=== PATIENT | male | born 1960 | race Caucasian/White ===

== ENCOUNTER → 2016-12-28 | Outpatient (CLI) | payer OTHER ==
[~2016-12-28] MED LIST: CRFUDL PO; DORZ1SOL6 OPB; LATA0.009 OPB; MULT-506 PO; NAPR-1169 PO; PRT40 PO
--- NOTE | 2016-12-28 18:46 | DIAGNOSTIC IMAGING REPORT ---
LEFT LOWER EXTREMITY VENOUS DOPPLER CLINICAL HISTORY: Left leg pain. COMPARISON STUDY: Left lower extremity venous Doppler December 02, 2015. TECHNIQUE: Sonography of the deep venous system of the left lower extremity was performed. Compression and augmentation were evaluated. FINDINGS: The left common femoral, superficial femoral and popliteal veins were compressible. Augmentation was normal. Flow was shown within the deep calf vessels. IMPRESSION: No evidence of deep venous thrombus within the left lower extremity. Electronically signed by: Sushant Kaba M.D. 12/28/2016 6:45 PM Dictated Date/Time: 12/28/2016 6:44 PM
--- NOTE | 2016-12-28 18:52 | DIAGNOSTIC IMAGING REPORT ---
RENAL ULTRASOUND CLINICAL HISTORY: Right groin pain. History of stones. Costovertebral angle tenderness. COMPARISON STUDY: CT of the abdomen September 16, 2016 and renal ultrasound February 25, 2016. TECHNIQUE: Sonography of the kidneys and the urinary bladder was performed. FINDINGS: There is no hydronephrosis. The right kidney measures 11.4 cm in maximal dimension and the left measures 12.9 cm. A 1.9 cm cyst within the upper pole of the right kidney is noted. This has minimal peripheral calcification. There is also a suspected 1.3 cm left renal cyst. There are bilateral renal calculi. Both ureteral jets were identified. A few echogenic right hepatic lobe lesions are unchanged and likely reflect hemangiomas when correlating with prior CTs. IMPRESSION: 1. No hydronephrosis. 2. Bilateral nephrolithiasis. 3. Probable bilateral renal cysts and right hepatic lobe hemangiomas. Electronically signed by: Sushant Kaba M.D. 12/28/2016 6:51 PM Dictated Date/Time: 12/28/2016 6:46 PM
--- NOTE | 2016-12-28 18:54 | DIAGNOSTIC IMAGING REPORT ---
SCROTAL ULTRASOUND CLINICAL HISTORY: Right groin pain. COMPARISON STUDY: Scrotal ultrasound October 29, 2014. TECHNIQUE: Grayscale and color and duplex Doppler sonography of the scrotum was performed. FINDINGS: The right testis measures 4.8 x 2.7 x 2.2 cm and the left measures 4.4 x 2.8 x 2.2 cm. Color flow within each testis is symmetric and no testicular mass is present. Small epididymal head cysts are noted. There is no evidence of epididymitis. There are small bilateral varicoceles. There is a small left-sided hydrocele. IMPRESSION: 1. Normal sonographic appearance of the testes. 2. No evidence of epididymitis. 3. Small bilateral varicoceles and a small left hydrocele. Electronically signed by: Sushant Kaba M.D. 12/28/2016 6:52 PM Dictated Date/Time: 12/28/2016 6:51 PM
--- NOTE | 2016-12-28 19:10 | DIAGNOSTIC IMAGING REPORT ---
CHEST 2 VIEWS ROUTINE CLINICAL HISTORY: Cough. Chest pain. COMPARISON STUDY: Chest CT September 16, 2016. FINDINGS: Lung volumes are normal. No pneumothorax or pleural effusion is present. There is no evidence of pulmonary edema. No consolidation is identified. Cardiomediastinal silhouette is normal. IMPRESSION: No acute cardiopulmonary findings. Electronically signed by: Sushant Kaba M.D. 12/28/2016 7:09 PM Dictated Date/Time: 12/28/2016 7:07 PM
[2016-12-28 19:16] LABS: BASO % 0.2 %; BASO ABS # 0.01 K/uL (0-0.2); COMPLETE YES; EOS % 0.9 %; HEMATOCRIT 45.1 % (42-52); IG% 0.2 %; LYMPH % 25.3 %; MEAN CELL VOLUME 92.8 fL (80-100); MEAN CORPUSCULAR HEMOGLOBIN 33.7 pg (25-34); MEAN CORPUSCULAR HGB CONC 36.4 g/dl (32-36); MEAN PLATELET VOLUME 9.6 fL (7.4-10.4); MONO % 7.4 %; PLATELET COUNT 154 K/uL (130-400); RED BLOOD COUNT 4.86 M/uL (4.7-6.1); WHITE BLOOD COUNT 5.54 K/uL (4.8-10.8)
[2016-12-28 19:30] LABS: ALT/SGPT 57 U/L (12-78); AST/SGOT 35 U/L (15-37); BLOOD UREA NITROGEN 13 mg/dl (7-18); BUN/CREATININE RATIO 14.7 (10-20); CALCIUM 8.9 mg/dl (8.5-10.1); CARBON DIOXIDE 28 mmol/L (21-32); CHLORIDE 103 mmol/L (98-107); CREATININE 0.91 mg/dl (0.60-1.40); GLUCOSE 77 mg/dl (70-99); POTASSIUM 3.6 mmol/L (3.5-5.1); SODIUM 138 mmol/L (136-145)
[2016-12-28 19:41] LABS: ALB/GLOB RATIO 1.3 (0.9-2); ALKALINE PHOSPHATASE 68 U/L (45-117)
== END | disposition home or self-care (01) ==
LOC: C.ULTR 17:20
PROVIDERS: ATTEND Nurse Practitioner Family
DX: R10.30 Lower abdominal pain, unspecified (principal); M54.9 Dorsalgia, unspecified; M79.605 Pain in left leg; R07.9 Chest pain, unspecified; R42 Dizziness and giddiness; R05 Cough; I86.1 Scrotal varices; N43.3 Hydrocele, unspecified; N20.0 Calculus of kidney

== ENCOUNTER → 2017-04-28 | Outpatient (CLI) | payer OTHER ==
--- NOTE | 2017-04-28 14:03 | DIAGNOSTIC IMAGING REPORT ---
LEFT FOOT 3 VIEWS HISTORY: Left foot pain. COMPARISON: Left foot 04/25/2016. FINDINGS: There is no fracture or dislocation. Soft tissues are unremarkable. No radiopaque foreign bodies. IMPRESSION: Unremarkable left foot. Electronically signed by: Kobi Brewster M.D. 04/28/2017 2:01 PM Dictated Date/Time: 04/28/2017 1:59 PM
== END | disposition home or self-care (01) ==
LOC: C.RAD 13:17
PROVIDERS: ATTEND Family Medicine
DX: M79.675 Pain in left toe(s) (principal)

== ENCOUNTER → 2017-06-05 | Outpatient (CLI) | payer OTHER ==
[2017-06-05 09:35] LABS: BASO % 0.4 %; BASO ABS # 0.02 K/uL (0-0.2); COMPLETE YES; EOS % 2.4 %; HEMATOCRIT 44.7 % (42-52); IG% 0.2 %; LYMPH % 17.4 %; LYMPH ABS # 0.93 K/uL (1.2-3.4); MEAN CELL VOLUME 95.5 fL (80-100); MEAN CORPUSCULAR HGB CONC 35.6 g/dl (32-36); MEAN PLATELET VOLUME 10.1 fL (7.4-10.4); MONO % 12.2 %; NEUT % 67.4 %; PLATELET COUNT 185 K/uL (130-400); RED BLOOD COUNT 4.68 M/uL (4.7-6.1); WHITE BLOOD COUNT 5.33 K/uL (4.8-10.8)
[2017-06-05 10:10] LABS: URINE APPEARANCE CLEAR (CLEAR); URINE BILIRUBIN NEG (NEG); URINE COLOR YELLOW; URINE NITRITE NEG (NEG); URINE SPECIFIC GRAVITY 1.024 (1.000-1.030); UROBILINOGEN NEG (NEG); ZZUR CULT IF INDIC CLEAN CATCH NO
[2017-06-05 10:10] LABS: ALT/SGPT 27 U/L (12-78); BLOOD UREA NITROGEN 24 mg/dl (7-18); BUN/CREATININE RATIO 27.6 (10-20); CALCIUM 8.9 mg/dl (8.5-10.1); CARBON DIOXIDE 29 mmol/L (21-32); CHLORIDE 106 mmol/L (98-107); CREATININE 0.86 mg/dl (0.60-1.40); GLUCOSE 86 mg/dl (70-99); SODIUM 138 mmol/L (136-145)
[2017-06-05 10:21] LABS: ALB/GLOB RATIO 1.4 (0.9-2); ALKALINE PHOSPHATASE 67 U/L (45-117); AST/SGOT 18 U/L (15-37)
[2017-06-05 10:33] LABS: MANUAL MICROSCOPIC REQUIRED? NO; REVIEW REQ? NO
[2017-06-05 11:28] LABS: LYME DISEASE AB IGG NEG (NEG); LYME DISEASE AB IGM NEG (NEG)
--- NOTE | 2017-06-09 12:49 | CODING QUERY MEDICAL NECESSITY ---
SUPPORTING DIAGNOSIS NEEDED A supporting diagnosis is required for the test/procedure performed on this patient in order for us to be reimbursed by the patient's insurance. Please provide a supporting diagnosis for the following test/procedure listed below next to the test name along with your signature. *If there is no additional diagnosis for this patient that would support the following test/procedure please document that below next to the test/procedure. Test(s)/Procedure(s) that require a supporting diagnosis: * TSH DIAGNOSIS: * VITAMIN D, 25-HYDROXY DIAGNOSIS: Provider Signature: Date: Thank you Ashley Boyce [employer] Once completed, please kindly fax back to [phone] For questions please call [phone]
== END | disposition home or self-care (01) ==
LOC: C.LAB 08:07
PROVIDERS: ATTEND Nurse Practitioner Family
DX: R07.89 Other chest pain (principal); R53.83 Other fatigue; R42 Dizziness and giddiness

== ENCOUNTER → 2017-12-13 | Outpatient (CLI) | payer OTHER ==
--- NOTE | 2017-12-13 14:07 | DIAGNOSTIC IMAGING REPORT ---
KUB HISTORY: DYSURIA COMPARISON: KUB 12/01/2014. Abdominal CT 09/16/2016. FINDINGS: The bowel gas pattern is unremarkable. There are no dilated loops of small bowel to suggest an obstruction. Multiple bilateral renal calculi are again noted. These are not significant changed. Dominant stone within the lower pole of the left kidney measures 8 mm. No definite ureteral calculi. Large amount of well-formed stool seen throughout the colon. No pneumoperitoneum or pneumatosis. IMPRESSION: Stable bilateral nephrolithiasis. Electronically signed by: Kobi Brewster M.D. 12/13/2017 2:06 PM Dictated Date/Time: 12/13/2017 2:00 PM
--- NOTE | 2017-12-13 14:27 | DIAGNOSTIC IMAGING REPORT ---
TESTICULAR ULTRASOUND HISTORY: TESTICULAR PAIN COMPARISON: Testicular ultrasound 12/28/2016. FINDINGS: Right testis: 4.7 x 3.2 x 2.0 cm. A 5 mm cyst within the epididymal head. Small hydrocele. No intratesticular masses. Normal color flow. Small varicocele, unchanged. Left testis: 4.4 x 2.7 x 2.3 cm. No intratesticular masses. Normal color flow. Small hydrocele. A 4 mm cyst within the body of the epididymis. Small left varicocele, unchanged. IMPRESSION: 1. No change compared to the prior study. 2. Normal bilateral testes. 3. Small bilateral hydroceles and varicoceles. Electronically signed by: Kobi Brewster M.D. 12/13/2017 2:26 PM Dictated Date/Time: 12/13/2017 2:23 PM
== END | disposition home or self-care (01) ==
LOC: C.ULTRBC 13:46
PROVIDERS: ATTEND Family Medicine
DX: R30.0 Dysuria (principal); Z90.79 Acquired absence of other genital organ(s); N50.819 Testicular pain, unspecified; N20.0 Calculus of kidney

== ENCOUNTER → 2017-12-22 | Outpatient (CLI) | payer OTHER ==
[~2017-12-22] MED LIST changes: +OPTIRAY 320 IV PRN
--- NOTE | 2017-12-22 08:24 | DIAGNOSTIC IMAGING REPORT ---
CT SCAN OF THE CHEST WITH IV CONTRAST CLINICAL HISTORY: Atypical chest pain. Pulmonary nodules. COMPARISON STUDY: Chest x-ray dated 12/28/2016. Chest CT scans dated 09/16/2016, 11/13/2015, and 08/01/2011. TECHNIQUE: Following the IV administration of 93 cc of Optiray 320, CT scan of the thorax was performed from the thoracic inlet to the upper abdomen. Images are reviewed in the axial, sagittal, and coronal planes. IV contrast was administered without complication. A dose lowering technique was utilized adhering to the principles of ALARA. CT DOSE: 942.37 mGy.cm FINDINGS: Thyroid: Imaged portions of the thyroid gland are normal in size and attenuation. Thoracic aorta: The thoracic aorta is normal in caliber and demonstrates standard 3-vessel arch anatomy. No dissection is seen. Pulmonary vasculature: The pulmonary trunk is normal in caliber. There are no filling defects identified in the central pulmonary vessels to indicate pulmonary embolus. Note that this examination was not protocoled for evaluation of the pulmonary arteries. Heart: The heart is normal in size and configuration, and without pericardial effusion. Lungs and pleural spaces: A small fat-containing Bochdalek hernia is present at both lung bases. There is no airspace consolidation or pleural effusion. Scattered calcified granulomas are identified. There is a 6 mm pleural-based nodule in the right lower lobe along the major fissure seen on image #209. A 3 mm nodule is present the right lung base on image #332. These have been present on multiple prior studies and are of doubtful significance. No new pulmonary nodule is seen. Mediastinum: There is no mediastinal lymphadenopathy. Donna: Clear. Axillae: There is no axillary lymphadenopathy. Upper abdomen: There are numerous nonobstructing left renal calculi identified measuring up to 9 mm. A punctate nonobstructing calculus is seen in the partially imaged right kidney. A 2.2 cm hemangioma is again seen in the right lobe of the liver. A 2.5 cm cyst arises from the upper pole the right kidney. 1.4 cm cyst is again seen in the upper pole of the left kidney. Skeletal structures: There is a mild superior endplate compression deformity of T3. No lytic or blastic bony lesions are seen. IMPRESSION: 1. There is no acute cardiopulmonary abnormality identified. 2. There is no airspace consolidation or pleural effusion. 3. There are scattered pulmonary and pleural-based nodules measure up to 6 mm. These have been present for over 2 years and are of doubtful significance. 4. Bilateral nephrolithiasis. 5. Additional findings as above. Electronically signed by: Mak Devries M.D. 12/22/2017 8:23 AM Dictated Date/Time: 12/22/2017 8:12 AM
== END | disposition home or self-care (01) ==
LOC: C.CTS 07:03
PROVIDERS: ATTEND Internal Medicine Pulmonary Disease
DX: R91.8 Other nonspecific abnormal finding of lung field (principal); N20.0 Calculus of kidney; Z88.1 Allergy status to other antibiotic agents; Z88.0 Allergy status to penicillin; Z88.8 Allergy status to other drugs, medicaments and biological substances; Z88.6 Allergy status to analgesic agent

== ENCOUNTER → 2017-12-22 | Outpatient (CLI) | payer OTHER ==
[~2017-12-22] MED LIST changes: -OPTIRAY 320 IV PRN
--- NOTE | 2017-12-22 08:12 | DIAGNOSTIC IMAGING REPORT ---
ABD/PELVIS COMBO CT DOSE: HISTORY: Renal nodules KIDNEY STONE TECHNIQUE: Multiaxial CT images of the abdomen and pelvis were performed pre and post intravenous contrast enhancement. A dose lowering technique was utilized adhering to the principles of ALARA. COMPARISON STUDY: 09/16/2016 FINDINGS: The unenhanced component of the study again demonstrates multiple bilateral nonobstructing renal calcifications. These are essentially unchanged compared to the prior study. Several small calcified granulomas right lung base are unchanged. Minimal dependent basilar atelectasis. Bilateral renal cysts are essentially unchanged. Enhancement characteristics are minimal with this again considered to be cystic change. There are stable. Liver spleen and pancreas enhance uniformly. The bowel pattern is considered nonobstructive. Mild bladder wall thickening. No significant abdominal pelvic or inguinal adenopathy. IMPRESSION: 1. Several bilateral renal cysts unchanged from the prior study. 2. Bilateral nephrocalcinosis also unchanged. 3. No evidence for hydronephrosis. 4. The remainder the study is unremarkable. 5. Mild bladder wall thickening The above report was generated using voice recognition software. It may contain grammatical, syntax or spelling errors. Electronically signed by: Shola Preciado M.D. 12/22/2017 8:10 AM Dictated Date/Time: 12/22/2017 8:06 AM
== END | disposition home or self-care (01) ==
LOC: C.CTS 07:08
PROVIDERS: ATTEND Urology Female Pelvic Medicine and Reconstructive Surgery
DX: N20.0 Calculus of kidney (principal); N28.1 Cyst of kidney, acquired; R93.41 Abnormal radiologic findings on diagnostic imaging of renal pelvis, ureter, or bladder; Z88.1 Allergy status to other antibiotic agents; Z88.0 Allergy status to penicillin; Z88.8 Allergy status to other drugs, medicaments and biological substances; Z88.6 Allergy status to analgesic agent

== ENCOUNTER → 2017-12-22 | Outpatient (CLI) | payer OTHER ==
--- NOTE | 2017-12-22 12:20 | DIAGNOSTIC IMAGING REPORT ---
BILATERAL LOWER EXTREMITY VENOUS DOPPLER HISTORY: BILATERAL LE PAIN/SWELLING, PARESTHESIA COMPARISON STUDY: None. FINDINGS: There is normal compressibility, flow, and augmentation within the bilateral lower extremity deep venous systems. IMPRESSION: No DVT within the right or left lower extremity. Electronically signed by: Kobi Brewster M.D. 12/22/2017 12:19 PM Dictated Date/Time: 12/22/2017 12:19 PM
[2017-12-22 13:34] LABS: BASO % 0.2 %; BASO ABS # 0.01 K/uL (0-0.2); EOS % 1.8 %; EOS ABS # 0.08 K/uL (0-0.5); HEMATOCRIT 43.4 % (42-52); HEMOGLOBIN 15.6 g/dL (14.0-18.0); IG# 0.01 K/uL (0.00-0.02); LYMPH ABS # 1.22 K/uL (1.2-3.4); MEAN CELL VOLUME 93.3 fL (80-100); MEAN CORPUSCULAR HEMOGLOBIN 33.5 pg (25-34); MEAN CORPUSCULAR HGB CONC 35.9 g/dl (32-36); MEAN PLATELET VOLUME 9.8 fL (7.4-10.4); MONO ABS # 0.45 K/uL (0.11-0.59); NEUT % 60.8 %; NEUT ABS # 2.75 K/uL (1.4-6.5); PLATELET COUNT 202 K/uL (130-400); RED CELL DISTRIBUTION WIDTH CV 12.8 % (11.5-14.5); RED CELL DISTRIBUTION WIDTH SD 43.7 fL (36.4-46.3); WHITE BLOOD COUNT 4.52 K/uL (4.8-10.8)
[2017-12-22 13:49] LABS: HEMOGLOBIN A1C 5.4 % (4.5-5.6)
[2017-12-22 17:07] LABS: ALBUMIN 4.5 gm/dl (3.4-5.0); ALT/SGPT 27 U/L (12-78); AST/SGOT 25 U/L (15-37); BLOOD UREA NITROGEN 19 mg/dl (7-18); CALCIUM 9.5 mg/dl (8.5-10.1); CARBON DIOXIDE 27 mmol/L (21-32); CREATININE 0.89 mg/dl (0.60-1.40); GLUCOSE 90 mg/dl (70-99); POTASSIUM 3.8 mmol/L (3.5-5.1); SODIUM 135 mmol/L (136-145)
[2017-12-22 17:18] LABS: ALKALINE PHOSPHATASE 65 U/L (45-117); TOTAL PROTEIN 8.1 gm/dl (6.4-8.2)
== END | disposition home or self-care (01) ==
LOC: C.ULTRBC 11:43
PROVIDERS: ATTEND Nurse Practitioner Family
DX: M79.606 Pain in leg, unspecified (principal); R20.2 Paresthesia of skin; R63.4 Abnormal weight loss; S30.861A Insect bite (nonvenomous) of abdominal wall, initial encounter; X58.XXXA Exposure to other specified factors, initial encounter

== ENCOUNTER → 2018-02-05 | Day surgery (SDC) | payer OTHER ==
[~2018-02-05] VITALS: Ht 182.9 cm; Wt 69.5 kg
[~2018-02-05] MED LIST changes: +ACET-1256 PO; -CRFUDL PO; -LATA0.009 OPB; +LATA0.5S OPB; +LIDOCAINE HCL 2% 2 ML VIAL (20MG/ML) ONE; +OMEP-331 PO; +PROPOFOL IV EMULSION 10 MG/ML 20 ML VIAL IV ONE; -PRT40 PO
[2018-02-05 12:44] VITALS: Ht 182.9 cm; Wt 69.5 kg
--- NOTE | 2018-02-05 12:57 | Endo History and Physical ---
History & Physical Date of Service: Feb 05, 2018. Chief Complaint: dysphagia, wt loss Referring Physician: Dr Najera History of Present Illness For EGD Past Medical History Neurological Disorder, Male Genitourinary Prob., Glaucoma, Thrombophlebitis, Kidney Disease, CVA/TIA Past Surgical History Hx Cardiac Surgery: No Hx Internal Defibrillator: No Hx Pacemaker: No Hx Abdominal Surgery: Yes (APPY) Hx of Implantable Prosthesis: No Hx Post-Op Nausea and Vomiting: No Hx Cancer Surgery: No Hx Thoracic Surgery: No Hx Orthopedic: Yes (LT LEG COMPARTMENT SYNDROME REPAIR) Hx Urinary Tract Surgery: Yes (CYSTOSCOPY WITH NODE RESECTION, BLADDER STONE REMOVALS, LITHOTRIPSY X4) Family History None Social History Smoking Status: Never Smoker Hx Substance Use: No Hx Alcohol Use: No Allergies Coded Allergies: [place] (Verified Allergy, Severe, THROAT SWELLS, 02/05/18) Ciprofloxacin (Verified Allergy, Unknown, RASH, 02/05/18) Penicillins (Verified Allergy, Unknown, UNKNOWN, 02/05/18) Hydrocodone (Verified Adverse Reaction, Intermediate, DIZZY, 02/05/18) Oxycodone (Verified Adverse Reaction, Unknown, dizzy spells, 02/05/18) Sulfamethoxazole w/Trimethoprim (Verified Adverse Reaction, Unknown, DIZZY , 02/05/18) Terazosin (Verified Adverse Reaction, Unknown, wicked dizzy, 02/05/18) Tramadol (Verified Adverse Reaction, Unknown, "WAY OUT IN OUTER SPACE", 02/05/18) PER PT REPORT Current Medications Reported Home Medications Medications Dose Route/Sig Max Daily Dose Days Date Category Tylenol (Acetaminophen) 500 Mg Tab 1-2 Tabs PO Q6-8H PRN 01/11/18 Reported Xalatan 0.005% Oph Carmelina (Latanoprost) 0.005 % Carmelina 1 Drops OPB HS 01/11/[address] (Omeprazole) 20 Mg Cap 1 Cap PO QAM 01/11/18 Reported Naprosyn (Naproxen) 500 Mg Tab 500 Mg PO BID PRN 02/16/16 Reported Multivitamin (Multivitamins) Tab 1 Tab PO DAILY 12/08/14 Reported Cosopt Oph (Dorzolamide Hcl-Timolol Maleat) 1 Carmelina Carmelina 1 Drop OPB BID 03/28/12 Reported Vital Signs Weight (Kilograms): 69.55 Height (Feet): 6 Height (Inches): 0 Physical Exam General Appearance: + thin Respiratory/Chest: Respiratory effort: no dyspnea Cardiovascular: Heart Auscultation: RRR Abdomen: Inspection & Palpation: soft Assessment and Plan Dysphagia, wt loss for EGD
--- NOTE | 2018-02-05 13:37 | Discharge Instructions ---
Endoscopy Patient Instructions Date / Procedure(s) Performed Feb 05, 2018. EGD Allergy Information Coded Allergies: [place] (Verified Allergy, Severe, THROAT SWELLS, 02/05/18) Ciprofloxacin (Verified Allergy, Unknown, RASH, 02/05/18) Penicillins (Verified Allergy, Unknown, UNKNOWN, 02/05/18) Hydrocodone (Verified Adverse Reaction, Intermediate, DIZZY, 02/05/18) Oxycodone (Verified Adverse Reaction, Unknown, dizzy spells, 02/05/18) Sulfamethoxazole w/Trimethoprim (Verified Adverse Reaction, Unknown, DIZZY , 02/05/18) Terazosin (Verified Adverse Reaction, Unknown, wicked dizzy, 02/05/18) Tramadol (Verified Adverse Reaction, Unknown, "WAY OUT IN OUTER SPACE", 02/05/18) PER PT REPORT Discharge Date / Findings Feb 05, 2018. Gastric polyp, inlet patch Medication Instructions Restart Stopped Medication(s): resume meds Reported Home Medications Medications Dose Route/Sig Max Daily Dose Days Date Category Tylenol (Acetaminophen) 500 Mg Tab 1-2 Tabs PO Q6-8H PRN 01/11/18 Reported Xalatan 0.005% Oph Carmelina (Latanoprost) 0.005 % Carmelina 1 Drops OPB HS 01/11/[address] (Omeprazole) 20 Mg Cap 1 Cap PO QAM 01/11/18 Reported Naprosyn (Naproxen) 500 Mg Tab 500 Mg PO BID PRN 02/16/16 Reported Multivitamin (Multivitamins) Tab 1 Tab PO DAILY 12/08/14 Reported Cosopt Oph (Dorzolamide Hcl-Timolol Maleat) 1 Carmelina Carmelina 1 Drop OPB BID 03/28/12 Reported Provider Instructions Activity Restrictions - No exercising or heavy lifting for 24 hours. - Do not drink alcohol the day of the procedure. - Do not drive a car or operate machinery until the day after the procedure. - Do not make any important decisions or sign important papers in 24 hours after the procedure. Following Day: - Return to full activity which may include returning to work/school. Diet Start your diet with liquids and light foods (jello, soup, juice, toast). Then eat your usual diet if not nauseated. Treatment For Common After Affects For mild abdominal pain, bloating, or excessive gas: - Rest - Eat lightly - Lie on right side Follow-Up Information Follow-up with DR. SANTILLAN/ ROD ENRIQUEZ as scheduled Anesthesia Information What You Should Know You have had a procedure that required some medicine to reduce anxiety and discomfort. This treatment is called moderate sedation. After receiving the treatment, you may be sleepy, but you will be able to breathe on your own. The effects of the treatment may last for several hours. Follow these instructions along with Activity/Diet recommendations noted above: * Do NOT do anything where dizziness or clumsiness would be dangerous. * Rest quietly at home today, then you can be up and about tomorrow. * Have a responsible person stay with you the rest of today. * You may have had an I.V. today. If so, you may take the dressing off later today. Recommendations Call your doctor if: * Trouble breathing * Continuous vomiting for more than 24 hours * Temperature above 101 degrees * Severe abdominal pain or bloating * Pain not relieved by pain medicine ordered * There is increased drainage or redness from any incision * A large amount of rectal bleeding greater than 2-3 tablespoons. (If you had a polyp/s removed or have hemorrhoids, a small amount of blood - from the rectum is to be expected.) * You have any unanswered questions or concerns. IN THE EVENT OF A SERIOUS EMERGENCY, GO TO THE NEAREST EMERGENCY ROOM Your discharge instructions were prepared by provider Edmund Ferrer. Patient Instructions Signature Page Roland Cochran Patient (or Guardian) Signature/Date: I have read and understand the instructions given to me by my caregivers. Caregiver/RN/Doctor Signature/Date: The above-named patient and/or guardian has received patient instructions on this date. + Original Patient Signature Page (only) stays with chart. Please make copy for patient.
--- NOTE | 2018-02-05 13:41 | GI REPORT ---
Procedure Date: 02/05/2018 1:25 PM Procedure: Upper GI endoscopy Indications: Dysphagia, Chest pain (non cardiac), Weight loss Medicines: Propofol total dose 120 mg IV, Lidocaine 80 mg IV Complications: No immediate complications. Estimated Blood Loss: Estimated blood loss was minimal. Procedure: Pre-Anesthesia Assessment: - Prior to the procedure, a History and Physical was performed, and patient medications, allergies and sensitivities were reviewed. The patient's tolerance of previous anesthesia was reviewed. - The risks and benefits of the procedure and the sedation options and risks were discussed with the patient. All questions were answered and informed consent was obtained. After obtaining informed consent, the endoscope was passed under direct vision. Throughout the procedure, the patient's blood pressure, pulse, and oxygen saturations were monitored continuously. The scope was introduced through the mouth, and advanced to the second part of duodenum. The upper GI endoscopy was accomplished without difficulty. The patient tolerated the procedure well. Findings: The Z-line was regular and was found 45 cm from the incisors. 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 The second portion of the duodenum was normal. Biopsies were taken with a cold forceps for histology. Estimated blood loss was minimal. A single 4 mm sessile polyp with no bleeding and no stigmata of recent bleeding was found in the gastric body. Biopsies were taken with a cold forceps for histology. Estimated blood loss was minimal. The middle third of the esophagus was normal. Biopsies were taken with a cold forceps for histology. Estimated blood loss was minimal. Impression: - Z-line regular, 45 cm from the incisors. 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 - Normal second portion of the duodenum. Biopsied. - A single gastric polyp. Biopsied. - Normal middle third of esophagus. Biopsied. Recommendation: - Discharge patient to home (ambulatory). - Continue present medications. - Await pathology results. - Return to primary care physician PRN. Edmund Ferrer M.D. Edmund Ferrer MD 02/05/2018 1:41:25 PM This report has been signed electronically. Note Initiated On: 02/05/2018 1:25 PM I attest to the content of the Intraoperative Record and orders documented therein, exceptions below
[2018-02-05 14:17] VITALS: BP 98/63; PULSE 48; O2SAT 100
--- NOTE | 2018-02-05 15:28 | Anesthesiology Progress Note ---
Anesthesia Post Op Note Date & Time Feb 05, 2018 at 15:28 Vital Signs Pain Intensity: 7 Vital Signs Past 12 Hours Date Time Temp Pulse Resp B/P (MAP) Pulse Ox O2 Delivery O2 Flow Rate FiO2 02/05/18 14:17 48 18 98/63 (75) 100 Room Air 02/05/18 14:00 49 18 91/62 (72) 100 Room Air 02/05/18 13:44 51 18 86/44 (58) 100 Room Air 02/05/18 12:51 36.5 54 20 104/74 (84) 99 Room Air Notes Mental Status: alert / awake / arousable, participated in evaluation Pt Amnestic to Procedure: Yes Nausea / Vomiting: adequately controlled Pain: adequately controlled Airway Patency, RR, SpO2: stable & adequate BP & HR: stable & adequate Hydration State: stable & adequate Anesthetic Complications: no major complications apparent
== END | disposition home or self-care (01) ==
LOC: C.GI 12:19
PROVIDERS: ATTEND Internal Medicine Gastroenterology
DX: R13.10 Dysphagia, unspecified (principal); R63.4 Abnormal weight loss; K21.9 Gastro-esophageal reflux disease without esophagitis; N18.9 Chronic kidney disease, unspecified; H40.9 Unspecified glaucoma; Z86.72 Personal history of thrombophlebitis; Z91.018 Allergy to other foods; Z88.1 Allergy status to other antibiotic agents; Z88.0 Allergy status to penicillin; Z88.5 Allergy status to narcotic agent; Z88.2 Allergy status to sulfonamides; Z88.8 Allergy status to other drugs, medicaments and biological substances; Z90.89 Acquired absence of other organs

== ENCOUNTER → 2018-02-23 | Outpatient (CLI) | payer OTHER ==
[~2018-02-23] MED LIST changes: -LIDOCAINE HCL 2% 2 ML VIAL (20MG/ML) ONE; -PROPOFOL IV EMULSION 10 MG/ML 20 ML VIAL IV ONE
--- NOTE | 2018-02-23 10:57 | DIAGNOSTIC IMAGING REPORT ---
ABDOMINAL ULTRASOUND, RIGHT UPPER QUADRANT HISTORY: Generalized abdominal pain.. COMPARISON: Abdomen and pelvis CT 12/22/2017. FINDINGS: Pancreas: The pancreas demonstrates a normal echotexture. Liver: Unremarkable. Gallbladder: No gallbladder wall thickening. No gallstones. There are 2 small nodules adherent to the gallbladder wall consistent with polyps. These measure 3 and 2 mm in size. CBD: 5 mm. Right kidney: Multiple small stones within largest measuring 3 mm. There is also a 2.6 cm upper pole cyst, unchanged. No hydronephrosis. IMPRESSION: 1. Small gallbladder polyps. No gallstones. No gallbladder wall thickening. 2. Right-sided nephrolithiasis. No hydronephrosis. 3. A 2.6 cm right renal upper pole cyst. Electronically signed by: Kobi Brewster M.D. 02/23/2018 10:55 AM Dictated Date/Time: 02/23/2018 10:52 AM
== END | disposition home or self-care (01) ==
LOC: C.ULTR 10:13
PROVIDERS: ATTEND Internal Medicine Gastroenterology
DX: R07.9 Chest pain, unspecified (principal)

== ENCOUNTER 2018-03-23 16:10 | Emergency (ER) | payer OTHER ==
[~2018-03-23] VITALS: Ht 182.9 cm; Wt 69.4 kg
[~2018-03-23 16:10] MED LIST changes: -DORZ1SOL6 OPB
[2018-03-23 16:18] VITALS: TEMP 36.9; Ht 182.9 cm; Wt 69.4 kg
[2018-03-23] MEDS ORDERED: SODIUM CHLORIDE 0.9% 1000ML 1,000 ML IV STA (16:52)
[2018-03-23] MEDS ORDERED: SODIUM CHLORIDE 0.9% 1000ML 1,000 ML IV ONE (16:52)
[2018-03-23] MEDS ORDERED: [UNRECOGNIZED DRUG - CODE] PO (17:09)
[2018-03-23 17:28] LABS: BASO % 0.2 %; BASO ABS # 0.01 K/uL (0-0.2); EOS % 2.4 %; EOS ABS # 0.11 K/uL (0-0.5); HEMATOCRIT 42.6 % (42-52); HEMOGLOBIN 15.1 g/dL (14.0-18.0); IG# 0.01 K/uL (0.00-0.02); LYMPH % 19.6 %; MEAN CELL VOLUME 93.6 fL (80-100); MEAN CORPUSCULAR HEMOGLOBIN 33.2 pg (25-34); MEAN CORPUSCULAR HGB CONC 35.4 g/dl (32-36); MEAN PLATELET VOLUME 9.4 fL (7.4-10.4); MONO % 17.2 %; MONO ABS # 0.79 K/uL (0.11-0.59); NEUT % 60.4 %; NEUT ABS # 2.78 K/uL (1.4-6.5); PLATELET COUNT 183 K/uL (130-400); RED CELL DISTRIBUTION WIDTH SD 44.4 fL (36.4-46.3)
--- NOTE | 2018-03-23 17:33 | DIAGNOSTIC IMAGING REPORT ---
CHEST ONE VIEW PORTABLE CLINICAL HISTORY: Chest pain. COMPARISON STUDY: Chest CT December 22, 2017. FINDINGS: Lung volumes are normal. There is no consolidation. No pneumothorax or pleural effusion is noted. There is no evidence for pulmonary edema. Cardiomediastinal silhouette is unremarkable. IMPRESSION: No acute cardiopulmonary findings. Electronically signed by: Sushant Kaba M.D. 03/23/2018 5:32 PM Dictated Date/Time: 03/23/2018 5:31 PM
[2018-03-23 17:34] LABS: INR 1.1 (0.9-1.1); PTT PATIENT 26.8 SECONDS (21.0-31.0)
[2018-03-23 17:35] LABS: CALCIUM 8.8 mg/dl (8.5-10.1); CREATININE 0.96 mg/dl (0.60-1.40); POTASSIUM 3.7 mmol/L (3.5-5.1)
[2018-03-23] MEDS ORDERED: KETOROLAC TROMETHAMINE 30 MG/ML VIAL IV STA (17:48)
[2018-03-23] MEDS ORDERED: DOXYCYCLINE HYCLATE 100 MG CAP PO STA (17:51)
[2018-03-23 17:52] LABS: ALBUMIN 3.9 gm/dl (3.4-5.0); CKMB 1.6 ng/ml (0.5-3.6); TOTAL PROTEIN 7.4 gm/dl (6.4-8.2)
--- NOTE | 2018-03-23 19:19 | DIAGNOSTIC IMAGING REPORT ---
SCROTAL ULTRASOUND CLINICAL HISTORY: Left testicular pain. COMPARISON STUDY: Scrotal ultrasound December 13, 2017. TECHNIQUE: Grayscale and color and duplex Doppler sonography of the scrotum was performed. FINDINGS: The right testis measures 4.6 x 3.4 x 2.2 cm and the left measures 4.3 x 2.8 x 1.9 cm. Color flow within each testis is symmetric. There is no testicular mass. There is no evidence for epididymitis. There are small bilateral epididymal cysts. There are small bilateral varicoceles. The appearance is unchanged. Small bilateral hydroceles are noted. IMPRESSION: 1. No evidence of testicular torsion. No testicular mass. 2. No evidence for epididymitis. 3. Small bilateral varicoceles. No change since previous exam. Electronically signed by: Sushant Kaba M.D. 03/23/2018 7:17 PM Dictated Date/Time: 03/23/2018 7:16 PM
--- NOTE | 2018-03-23 19:56 | EMERGENCY ROOM VISIT NOTE ---
History Report prepared by Kathleen: Sierra Benson Under the Supervision of: Dr. Jorge Luis Quezada M.D. First contact with patient: 16:21 Chief Complaint: CHEST PAIN Stated Complaint: TICK BITE, CHEST PAIN, COUGHING History of Present Illness The patient is a 57 year old male who presents to the Emergency Room with complaints of persistent chest pain starting 2 days ago. He describes the pain as a heaviness or tightness. The chest tightness worsens with deep breaths. The pain goes up into his throat. He feels SOB. He has had a cough and difficulty swallowing. He has not checked his temperature, but has felt like he has a fever. He is having left testicular pain which goes down his leg. He has a history of hydrocele. He pulled a tick off his foot today. The tick was engorged. He is unsure when the tick bite occurred. [facility] the [facility]. He has had some fullness in his left ear. He tried taking some allergy medicines last night. He has a history of allergies. He has nodules in his lungs and had a spontaneous pneumothorax as a teen. He has had kidney stones. He has a history of diverticulitis and compartment syndrome. He is currently not on blood thinners. He denies any history of heart problems. He is keeping up with his fluids. Source of History: patient Onset: 2 days ago Position: chest Quality: other (tightness, heaviness) Timing: other (persistent) Modifying Factors (Worsening): breathing Associated Symptoms: + fevers, + cough, + SOB Note: Pt reports left testicle pain. Review of Systems See HPI for pertinent positives & negatives. A total of 10 systems reviewed and were otherwise negative. 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 Nurse's notes were reviewed and I agree with. Family History Kidney disease Kidney stones Social History Smoking Status: Never Smoker Alcohol Use: occasionally Drug Use: none Marital Status: Occupation Status: employed Current/Historical Medications Scheduled Dorzolamide Hcl-Timolol Maleat (Cosopt Oph), 1 DROP OPB BID Latanoprost (Xalatan 0.005% Oph Carmelina), 1 DROPS OPB HS Multiple Vitamins W/ Minerals ([facility] Spectravite Senior), 1 TAB PO DAILY Omeprazole (Omeprazole Dr), 1 CAP PO QAM Scheduled PRN Naproxen (Naprosyn), 500 MG PO BID PRN for Pain Allergies Coded Allergies: [place] (Verified Allergy, Severe, THROAT SWELLS, 03/23/18) Ciprofloxacin (Verified Allergy, Unknown, RASH, 03/23/18) Penicillins (Verified Allergy, Unknown, UNKNOWN, 03/23/18) Hydrocodone (Verified Adverse Reaction, Intermediate, DIZZY, 03/23/18) Oxycodone (Verified Adverse Reaction, Unknown, dizzy spells, 03/23/18) Sulfamethoxazole w/Trimethoprim (Verified Adverse Reaction, Unknown, DIZZY , 03/23/18) Terazosin (Verified Adverse Reaction, Unknown, wicked dizzy, 03/23/18) Tramadol (Verified Adverse Reaction, Unknown, "WAY OUT IN OUTER SPACE", ) PER PT REPORT Physical Exam Vital Signs Date Time Temp Pulse Resp B/P (MAP) Pulse Ox O2 Delivery O2 Flow Rate FiO2 03/23/18 20:09 59 18 100/58 98 03/23/18 18:22 58 18 108/71 98 Room Air 03/23/18 17:15 97 Room Air 03/23/18 17:10 60 18 108/66 96 Room Air 03/23/18 16:39 61 03/23/18 16:18 36.9 74 18 102/69 100 Room Air Physical Exam General: Non-ill appearing slender middle age male in no acute distress. No coughing, speaking and swallowing without difficulty, no drooling. HEENT: Normal cephalic atraumatic. Pupils are equal round and reactive to light. Extraocular movements are intact. Oropharynx is pink with moist mucous membranes. No swelling of the mouth lips or tongue. Tonsils have been previously removed. Floor of mouth is soft. No Medardo's angina. Neck: Supple with a midline trachea. No meningeal signs or stiffness, no JVD or bruits. No Stridor. Chest: Clear to auscultation bilaterally. No wheezes or rhonchi. No increased work of breathing. Heart: regular rate and rhythm. Abdomen: Soft nontender, nondistended without rebound guarding or rigidity. Extremities: No cyanosis clubbing or edema. No calf tenderness or assymetry. Left leg has previous fasciotomy, no evidence of acute compartment syndrome. Spine/Back. Non tender to palpation. No CVA tenderness Skin: Good turgor without rashes. Neurologic exam: Cranial nerves two through 12 are intact. Motor and sensation are intact and symmetrical throughout. Medical Decision & Procedures ER Provider Diagnostic Interpretation: X-ray results as stated below per interpretation by me and the radiologist. Radiology results as stated below per my review and radiologist interpretation: CHEST ONE VIEW PORTABLE CLINICAL HISTORY: Chest pain. COMPARISON STUDY: Chest CT December 22, 2017. FINDINGS: Lung volumes are normal. There is no consolidation. No pneumothorax or pleural effusion is noted. There is no evidence for pulmonary edema. Cardiomediastinal silhouette is unremarkable. IMPRESSION: No acute cardiopulmonary findings. Electronically signed by: Sushant Kaba M.D. 03/23/2018 5:32 PM Dictated Date/Time: 03/23/2018 5:31 PM SCROTAL ULTRASOUND CLINICAL HISTORY: Left testicular pain. COMPARISON STUDY: Scrotal ultrasound December 13, 2017. TECHNIQUE: Grayscale and color and duplex Doppler sonography of the scrotum was performed. FINDINGS: The right testis measures 4.6 x 3.4 x 2.2 cm and the left measures 4.3 x 2.8 x 1.9 cm. Color flow within each testis is symmetric. There is no testicular mass. There is no evidence for epididymitis. There are small bilateral epididymal cysts. There are small bilateral varicoceles. The appearance is unchanged. Small bilateral hydroceles are noted. IMPRESSION: 1. No evidence of testicular torsion. No testicular mass. 2. No evidence for epididymitis. 3. Small bilateral varicoceles. No change since previous exam. Electronically signed by: Sushant Kaba M.D. 03/23/2018 7:17 PM Dictated Date/Time: 03/23/2018 7:16 PM Laboratory Results 03/23/18 16:35 Red Blood Count 4.55, Mean Corpuscular Volume 93.6, Mean Corpuscular Hemoglobin 33.2, Mean Corpuscular Hemoglobin Concent 35.4, Mean Platelet Volume 9.4, Neutrophils (%) (Auto) 60.4, Lymphocytes (%) (Auto) 19.6, Monocytes (%) (Auto) 17.2, Eosinophils (%) (Auto) 2.4, Basophils (%) (Auto) 0.2, Neutrophils # (Auto ) 2.78, Lymphocytes # (Auto) 0.90, Monocytes # (Auto) 0.79, Eosinophils # (Auto ) 0.11, Basophils # (Auto) 0.01 03/23/18 16:35 Test 03/23/18 16:35 03/23/18 17:05 03/23/18 18:50 White Blood Count 4.60 K/uL (4.8-10.8) Red Blood Count 4.55 M/uL (4.7-6.1) Hemoglobin 15.1 g/dL (14.0-18.0) Hematocrit 42.6 % (42-52) Mean Corpuscular Volume 93.6 fL (80-100) Mean Corpuscular Hemoglobin 33.2 pg (25-34) Mean Corpuscular Hemoglobin Concent 35.4 g/dl (32-36) Platelet Count 183 K/uL (130-400) Mean Platelet Volume 9.4 fL (7.4-10.4) Neutrophils (%) (Auto) 60.4 % Lymphocytes (%) (Auto) 19.6 % Monocytes (%) (Auto) 17.2 % Eosinophils (%) (Auto) 2.4 % Basophils (%) (Auto) 0.2 % Neutrophils # (Auto) 2.78 K/uL (1.4-6.5) Lymphocytes # (Auto) 0.90 K/uL (1.2-3.4) Monocytes # (Auto) 0.79 K/uL (0.11-0.59) Eosinophils # (Auto) 0.11 K/uL (0-0.5) Basophils # (Auto) 0.01 K/uL (0-0.2) RDW Standard Deviation 44.4 fL (36.4-46.3) RDW Coefficient of Variation 13.0 % (11.5-14.5) Immature Granulocyte % (Auto) 0.2 % Immature Granulocyte # (Auto) 0.01 K/uL (0.00-0.02) Prothrombin Time 11.1 SECONDS (9.0-12.0) Prothromb Time International Ratio 1.1 (0.9-1.1) Activated Partial Thromboplast Time 26.8 SECONDS (21.0-31.0) Partial Thromboplastin Ratio 1.0 D-Dimer 420 ug/L FEU (0-500) Anion Gap 3.0 mmol/L (3-11) Est Creatinine Clear Calc Drug Dose 81.3 ml/min Estimated GFR () 99.9 Estimated GFR (Non- 86.2 BUN/Creatinine Ratio 17.2 (10-20) Calcium Level 8.8 mg/dl (8.5-10.1) Total Bilirubin 0.7 mg/dl (0.2-1) Direct Bilirubin 0.2 mg/dl (0-0.2) Aspartate Amino Transf (AST/SGOT) 17 U/L (15-37) Alanine Aminotransferase (ALT/SGPT) 23 U/L (12-78) Alkaline Phosphatase 60 U/L (45-117) Total Creatine Kinase 92 U/L (39-308) Creatine Kinase MB 1.6 ng/ml (0.5-3.6) Creatine Kinase MB Ratio 1.7 (0-3.0) Total Protein 7.4 gm/dl (6.4-8.2) Albumin 3.9 gm/dl (3.4-5.0) Lipase 165 U/L (73-393) Bedside Troponin I < 0.030 ng/ml (0-0.045) Urine Color YELLOW Urine Appearance CLEAR (CLEAR) Urine pH 6.5 (4.5-7.5) Urine Specific [place] 1.020 (1.000-1.030) Urine Protein NEG (NEG) Urine Glucose (UA) NEG (NEG) Urine Ketones NEG (NEG) Urine Occult Blood NEG (NEG) Urine Nitrite NEG (NEG) Urine Bilirubin NEG (NEG) Urine Urobilinogen NEG (NEG) Urine Leukocyte Esterase TRACE (NEG) Urine WBC (Auto) 1-5 /hpf (0-5) Urine RBC (Auto) 5-10 /hpf (0-4) Urine Hyaline Casts (Auto) 1-5 /lpf (0-5) Urine Epithelial Cells (Auto) 0-5 /lpf (0-5) Urine Bacteria (Auto) NEG (NEG) Laboratory studies as stated above per my review. Medications Administered Medications (Trade) Dose Ordered Sig/Flory Route Start Time Stop Time Status Last Admin Dose Admin Sodium Chloride 1,000 ml @ 999 mls/hr Q1H1M STAT IV 03/23/18 16:52 03/23/18 17:52 DC 03/23/18 17:05 999 MLS/HR Sodium Chloride 1,000 ml @ 150 mls/hr Q6H40M ONCE IV 03/23/18 16:52 03/23/18 23:31 03/23/18 17:06 150 MLS/HR Ketorolac Tromethamine (Toradol Inj) 30 mg NOW STAT IV 03/23/18 17:48 03/23/18 17:50 DC 03/23/18 18:11 30 MG Doxycycline Hyclate (Vibramycin Cap) 200 mg NOW STAT PO 03/23/18 17:51 03/23/18 17:53 DC 03/23/18 18:11 200 MG ECG Per My Interpretation Indication: chest pain Rate (beats per minute): 59 Rhythm: sinus bradycardia Findings: no acute ischemic change, no ectopy Comparison ECG Date: 30-Jun-2016 Change: no significant change ED Course 1636: Past medical records reviewed. The patient was evaluated in room C11B, and a complete history and physical examination were performed. 1652: Sodium Chloride 1000 ml @ 150 mls/hr IV, Sodium Chloride 1000 ml @ 999 mls /hr IV. 1748: Toradol Inj 30 mg IV. 175: Vibramycin Cap 200 mg PO. 1809: I reevaluated the patient. He is resting comfortably. He is now complaining of testicular pain. 1927: Upon reevaluation, the patient is resting comfortably. I discussed the results and treatment plan with him. He verbalized agreement of the treatment plan. The patient was discharged home. Medical Decision Differentials include, but are not limited to; bronchitis, pneumonia, pneumothorax, cardiac disease, PE, electrolyte or metabolic abnormality. This patient comes in as described above. he has multiple different complaints. he has had a cough for a few days with chest pain with coughing and also had a tick bite on his right foot which he has noticed and removed this evening. there is been no rash or fever or flulike symptoms or anything to suggest acute Lyme. He also has testicular pain which tends to be chronic but says it feels worse. He has stable vital signs and looks well. IV access established and he was hydrated 1 L IV normal saline bolus. EKG, chest x-ray, and multiple blood testing was obtained as well as urinalysis and testicular ultrasound. Chest x- ray does not show any evidence to suggest congestive heart failure, pneumonia, or pneumothorax. EKG does not suggest acute coronary syndrome or arrhythmia. May cardiac biomarkers were negative and in the low pretest probably setting makes cardiac disease highly unlikely. D-dimer is within normal limits and a low pretest probably setting makes PE highly unlikely. He has no electrolyte or metabolic abnormalities. He has nothing to suggest liver, gallbladder, or pancreas disease. Urinalysis does not suggest infection with a culture pending. He has remained stable. He was given doxycycline 200 mg p.o. for prophylaxis of his tick bite and at this point, there is nothing to suggest he actually has Lyme disease but I counseled him on what to look out for. He was also given IV Toradol and was feeling better. His ultrasound shows no evidence of acute testicular abnormalities. He is going to use gwfp-ayc-tugumhe cough suppressant such as Delsym or Robitussin-DM. He can use acetaminophen/Tylenol and a limited amount of NSAIDs. He should take these with food. He should return if: Increasing pain, fever or chills, worsening of symptoms, any new problems or concerns. He is happy the plan and discharged to home Medication Reconcilliation Current Medication List: was personally reviewed by me Blood Pressure Screening Patient's blood pressure: Normal blood pressure Blood pressure disposition: Did not require urgent referral Impression Primary Impression: Cough Additional Impressions: Precordial chest pain Testicular pain Tick bite Scribe Attestation The scribe's documentation has been prepared under my direction and personally reviewed by me in its entirety. I confirm that the note above accurately reflects all work, treatment, procedures, and medical decision making performed by me. Departure Information Dispostion Home / Self-Care Referrals Charlie Najera M.D. (PCP) Forms Call Back Authorization, HOME CARE DOCUMENTATION FORM, IMPORTANT VISIT INFORMATION Patient Instructions My [facility] Additional Instructions Rest. Drink plenty of fluids. Use [id number]-odakhyp cough medicine such as Robitussin-DM or Delsym For pain, may use Tylenol in the [id number]-art-[id number] recommended dosages. Do not exceed this. Also use a limited amount of Naprosyn but take it with food Return to the ER if: Increasing pain, worsening of symptoms, fever or chills, shortness of breath, any new problems or concerns Follow-up with your doctor Monday for recheck Problem Qualifiers
[2018-03-23 20:09] VITALS: BP 100/58; PULSE 59; O2SAT 98
[2018-03-23] MEDS ORDERED: DORZ1SOL6 OPB (22:37)
== END 2018-03-23 20:10 | disposition home or self-care (01) ==
LOC: C.EDB 16:12 → C.EDC 20:10
DX: R07.2 Precordial pain (principal); R05 Cough; N50.812 Left testicular pain; S90.861A Insect bite (nonvenomous), right foot, initial encounter; W57.XXXA Bitten or stung by nonvenomous insect and other nonvenomous arthropods, initial encounter; Z87.448 Personal history of other diseases of urinary system; Z91.018 Allergy to other foods; Z88.0 Allergy status to penicillin; Z88.1 Allergy status to other antibiotic agents; Z88.2 Allergy status to sulfonamides; Z88.5 Allergy status to narcotic agent; Z88.6 Allergy status to analgesic agent; Z88.8 Allergy status to other drugs, medicaments and biological substances

== ENCOUNTER 2020-06-26 13:25 | Inpatient (IN) ==
[2020-06-26] MEDS ORDERED: SODIUM CHLORIDE 0.9% 1000ML 1,000 ML IV SCH ×3 (16:30→21:40)
[2020-06-26 16:58] LABS: Basophils # (auto) 0.01 K/uL (0-0.2); Basophils % (auto) 0.2 %; Eosinophils # (auto) 0.11 K/uL (0-0.5); Eosinophils % (auto) 1.8 %; Hematocrit (blood only) 39.5 % (42-52); Hemoglobin 13.5 g/dL (14.0-18.0); Immature Granulocytes # (auto) 0.01 K/uL (0.00-0.02); Immature Granulocytes % (auto) 0.2 %; Lymphocytes # (auto) 0.83 K/uL (1.2-3.4); Lymphocytes % (auto) 13.9 %; Mean Corpuscular Hemoglobin 32.8 pg (25-34); Mean Corpuscular Hgb Conc 34.2 g/dL (32-36); Mean Corpuscular Volume 96.1 fL (80-100); Mean Platelet Volume 9.9 fL (7.4-10.4); Monocytes # (auto) 0.51 K/uL (0.11-0.59); Monocytes % (auto) 8.5 %; Neutrophils # (auto) 4.51 K/uL (1.4-6.5); Neutrophils % (auto) 75.4 %; Platelet Count 253 K/uL (130-400); RDW Coefficient of Variation 13.3 % (11.5-14.5); RDW Standard Deviation 46.1 fL (36.4-46.3); Red Blood Count 4.11 M/uL (4.7-6.1); White Blood Count 5.98 K/uL (4.8-10.8)
[2020-06-26 17:09] LABS: INR 1.1 (0.9-1.1); Partial Thromboplastin Time 27.5 Seconds (21.0-31.0); Prothrombin Time 11.6 Seconds (9.0-12.0)
[2020-06-26 17:21] LABS: Alanine Aminotransferase 36 U/L (12-78); Albumin Level 3.7 gm/dl (3.4-5.0); Aspartate Aminotransferase 24 U/L (15-37); BUN Creatinine Ratio 15.9 (10-20); Blood Urea Nitrogen 12 mg/dl (7-18); Calcium 8.9 mg/dl (8.5-10.1); Carbon Dioxide 24 mmol/L (21-32); Chloride 106 mmol/L (98-107); Est GFR (African American) 114.8; Glucose 88 mg/dl (70-99); Magnesium 2.2 mg/dl (1.8-2.4); Sodium 137 mmol/L (136-145)
[2020-06-26 17:31] LABS: Albumin Globulin Ratio 0.9 (0.9-2); Alkaline Phosphatase 118 U/L (45-117); Bilirubin,Total 1.1 mg/dl (0.2-1); Total Protein 7.7 gm/dl (6.4-8.2); Troponin I < 0.015 ng/ml (0-0.045)
--- NOTE | 2020-06-26 17:37 | XRay Report ---
XR chest 1V portable CLINICAL HISTORY: SEPSIS COMPARISON STUDY: December 20, 2018 FINDINGS: The heart is the upper limits of normal in size. There is no failure. There is no focal pul monary consolidation. There are no pleural effusions.[ IMPRESSION: No active disease in the chest. ACT 112: Negative or not required by law. Electronically signed by: Amol Bird M.D. 06/26/2020 5:36 PM
[2020-06-26 17:40] LABS: Appearance Urine Clear (Clear); Bacteria Urine Automated Negative (Negative); Bilirubin Urine Negative (Negative); Blood Urine Negative (Negative); Cast Urine Automated 0 /lpf (0-5); Color Urine Yellow; Epithelial Cell Urine Auto 0-5 /lpf (0-5); Glucose Urine UA Negative (Negative); Ketones Urine Negative (Negative); Leukocyte Esterase Urine Trace (Negative); Nitrite Urine Negative (Negative); Protein Urine Negative (Negative); RBC Urine Automated 0-4 /hpf (0-4); Urobilinogen Urine Negative (Negative); pH Urine 6.5 (4.5-7.5)
[2020-06-26 17:52] LABS: D Dimer 1480 ug/L FEU (0-500)
--- NOTE | 2020-06-26 18:10 | Emergency Department Note ---
History of Present Illness General Chief complaint: Shortness of Breath/Dyspnea Stated complaint: SOB,COUGH Time Seen by Provider: 06/26/20 15:36 Source: patient Mode of arrival: ambulatory Limitations: no limitations History of Present Illness Provider complaint: Shortness of breath, cough, chest pain Onset (ago): week(s) 2 Location: chest Radiation: non-radiation Severity: mild Pain Consistency: + colicky Quality: + other ("Squeezing") Relieved By: + rest Exacerbated By: + movement Associated symptoms: + cough, + diaphoresis, + loss of appetite, + malaise and + shortness of breath; no fever/chills, no headaches and no nausea/vomiting Treatments prior to arrival: none This is a 59-year-old male who presents to the emergency department complaining of 2 weeks of increased shortness of breath, cough, and chest tightness. Patient states symptoms are worse with any exertion, particularly worse he has noted when going up the steps as he has to stop while walking up the steps to try and catch his breath. Patient states no prior history of COPD, or asthma. Patient denies any prior history of heart problems or congestive heart failure. Patient denies fevers or chills. Patient states the cough is persistent, however nonproductive. Patient denies any other accompanying URI symptoms. He denies fevers but states he has been hypothermic recently as he periodically checks his temperature at home when he is not feeling well. Patient is concerned because this has previously been a sign of sepsis in him. Patient denies any other change in medications. Patient does admit to a prior history of DVT. Patient is not currently anticoagulated. Patient denies any other khoury ge in bowel or bladder function, denies any lower extremity edema. Patient states he has had difficulty maintaining his weight, and he has had poor appetite recently as well as weight loss. Patient states due to short-term memory loss from a prior severe episode of sepsis, he does have a patient a dvocate who he insists must be present to answer any questions or discuss any treatment plan. Pt seen during a time of high acuity and national emergency pandemic while wearing PPE. Home Medications Home Medications Medication Instructions Recorded Confirmed Type dorzolamide-timolol 1 drp OPB BID 08/03/18 06/26/20 History latanoprost 1 drp OPB HS 08/03/18 06/26/20 History cholecalciferol (vitamin D3) 2,000 unit PO DAILY 08/07/19 06/26/20 History [Vitamin D3] multivitamin 1 tab PO DAILY 08/07/19 06/26/20 History Allergies Allergy/AdvReac Type Severity Reaction Status Date / Time walnut Allergy Severe THROAT Verified 06/26/20 17:13 SWELLS ciprofloxacin Allergy Mild RASH Verified 06/26/20 17:13 Cipro Allergy Unknown RASH Verified 03/23/18 16:18 Penicillins Allergy Unknown UNKNOWN Verified 06/26/20 17:13 hydrocodone AdvReac Intermediate DIZZY Verified 06/26/20 17:14 oxycodone AdvReac Intermediate dizzy Verified 06/26/20 17:14 spells sulfamethoxazole AdvReac Intermediate DIZZY Verified 06/26/20 17:14 terazosin AdvReac Intermediate wicked Verified 06/26/20 17:15 dizzy tramadol AdvReac Intermediate "WAY OUT Verified 06/26/20 17:15 IN OUTER SPACE" trimethoprim AdvReac Intermediate DIZZY Verified 06/26/20 17:15 Bactrim AdvReac Unknown DIZZY Verified 03/23/18 16:18 Past Med/Surg History Medical History Diverticulitis Glaucoma Lyme disease Precordial chest pain Rib fractures Right flank pain Right ureteral stone Septic shock UTI (urinary tract infection) Surgical History History of bladder surgery Hx of fasciotomy Family History Other Adopted Social History Smoking Status: Never smoker Hx Alcohol Use: No Hx Substance Use: No Preferred Language: Lithuanian Communication Ability: Effective Computer Systems Auditor Required: No Beliefs That Will Affect Care: None Current Living Situation: Alone Other Information That Helps Us Care for You: No Feels Safe at Home: Yes Safety Concerns: Feels Safe At This Time Review of Systems See HPI for pertinent positives & negatives. and A total of 10 systems reviewed and were otherwise negative Physical Exam Vital Signs Vital Signs - 24 hr 06/26/20 13:32 06/26/20 16:01 06/26/20 16:30 Temperature 37.2 C Temperature Source Oral Pulse Rate 111 H 87 Pulse Rate from SpO2 Sensor 93 H Respiratory Rate 20 27 H Respiratory Effort / Characteristics Non-Labored Spontaneous Spontaneous Respiratory Depth Normal Blood Pressure 108/74 98/64 L Blood Pressure Mean 85 66 Blood Pressure Position Sitting Pulse Oximetry 94 98 97 Oxygen Delivery Method Room Air Room Air Sepsis Recent Fever Within 48 Hours No Sepsis New/Unexplained Change in Mental Status No Sepsis Action Taken by Nursing No Action Required 06/26/20 16:55 06/26/20 16:56 06/26/20 17:08 Temperature Temperature Source Pulse Rate 79 Pulse Rate from SpO2 Sensor 73 Respiratory Rate 15 Respiratory Effort / Characteristics Respiratory Depth Blood Pressure 103/66 Blood Pressure Mean 69 Blood Pressure Position Pulse Oximetry 97 97 99 Oxygen Delivery Method Room Air Room Air Sepsis Recent Fever Within 48 Hours Sepsis New/Unexplained Change in Mental Status Sepsis Action Taken by Nursing 06/26/20 17:30 06/26/20 18:00 06/26/20 19:00 Temperature Temperature Source Pulse Rate 70 79 71 Pulse Rate from SpO2 Sensor 73 81 Respiratory Rate 13 20 16 Respiratory Effort / Characteristics Respiratory Depth Blood Pressure 106/64 112/60 99/71 L Blood Pressure Mean 83 67 75 Blood Pressure Position Pulse Oximetry 97 97 97 Oxygen Delivery Method Sepsis Recent Fever Within 48 Hours Sepsis New/Unexplained Change in Mental Status Sepsis Action Taken by Nursing 06/26/20 20:00 Temperature Temperature Source Pulse Rate 72 Pulse Rate from SpO2 Sensor Respiratory Rate 18 Respiratory Effort / Characteristics Respiratory Depth Blood Pressure 98/65 L Blood Pressure Mean 77 Blood Pressure Position Pulse Oximetry 96 Oxygen Delivery Method Sepsis Recent Fever Within 48 Hours Sepsis New/Unexplained Change in Mental Status Sepsis Action Taken by Nursing GENERAL: alert, well appearing, well nourished, no distress, non-toxic, anxious EYE EXAM: normal conjunctiva, PERRL and EOM's grossly intact OROPHARYNX: no exudate, no erythema, lips, buccal mucosa, and tongue normal and mucous membranes are moist NECK: supple, no nuchal rigidity, no adenopathy, non-tender LUNGS: Clear to auscultation. Normal chest wall mechanics, no w/r/r HEART: no murmurs, S1 normal and S2 normal ABDOMEN: abdomen soft, non-tender, normo-active bowel sounds, no masses, no rebound or guarding. BACK: Back is symmetrical on inspection and there is no deformity, no midline tenderness, no CVA tenderness. SKIN: no rashes and no bruising UPPER EXTREMITIES: upper extremities are grossly normal. FROM, nml pulses b/l. LOWER EXTREMITIES: No pitting edema. FROM, nml pulses b/l. Well-healed scar noted vertically along the entire distal left lower extremity consistent with prior fasciotomy. NEURO EXAM: Normal sensorium, cranial nerves II-XII grossly intact, normal speech, no gross weakness of arms, no gross weakness of legs. Gross sensation intact. Course Course 1849: Pt updated in conjunction with Adilson with patient advocate. 1924: DIscussed with Dr. Oliver. Ct pending. Administered Medications Colchicine (Colchicine 0.6 Mg Tab) 0.6 mg PO BID [facility] Stop: 07/27/20 12:14 Last Admin: 06/28/20 21:21 Dose: 0.6 mg Documented by: [id number] Admin: 06/28/20 08:33 Dose: 0.6 mg Documented by: [id number] Admin: 06/27/20 21:02 Dose: 0.6 mg Documented by: [id number] Admin: 06/27/20 13:19 Dose: 0.6 mg Documented by: [id number] Dorzolamide/Timolol (Dorzolamide/Timolol 22.3/6.8mg/Ml 10 Ml Btl) 1 drops OPB BID [facility] Stop: 07/26/20 21:39 Last Admin: 06/28/20 21:22 Dose: 1 drops Documented by: [id number] Admin: 06/28/20 08:32 Dose: 1 drops Documented by: [id number] Admin: 06/27/20 21:02 Dose: 1 drops Documented by: [id number] Admin: 06/27/20 07:35 Dose: 1 drops Documented by: [id number] Admin: 06/26/20 22:01 Dose: 1 drops Documented by: [id number] Ceftriaxone Sodium 2,000 mg/ (Dextrose) 70 mls @ 100 mls/hr IV DAILY@2200 LINDA; Protocol Stop: 07/06/20 21:59 Last Admin: 06/28/20 21:22 Dose: 100 mls/hr Documented by: [id number] Infusion: 06/27/20 22:05 Dose: 0 mls/hr Documented by: [id number] Admin: 06/27/20 21:03 Dose: 100 mls/hr Documented by: [id number] Infusion: 06/27/20 00:23 Dose: 0 mls/hr Documented by: [id number] Admin: 06/26/20 23:19 Dose: 100 mls/hr Documented by: [id number] Latanoprost (Latanoprost 0.005% Op Soln 2.5 Ml Btl) 1 drops OPB HS [facility] Stop: 07/26/20 21:39 Last Admin: 06/28/20 21:20 Dose: 1 drops Documented by: [id number] Admin: 06/27/20 21:03 Dose: 1 drops Documented by: [id number] Admin: 06/26/20 22:00 Dose: 1 drops Documented by: [id number] Midodrine (Midodrine Hcl 2.5 Mg Tab) 2.5 mg PO TID@0800,1200,1700 [facility] Stop: 07/28/20 11:59 Last Admin: 06/28/20 17:06 Dose: Not Given Documented by: [id number] Admin: 06/28/20 12:18 Dose: 2.5 mg Documented by: [id number] Multivitamins (Multivitamin Tab) 1 tab PO [facility] Stop: 07/27/20 08:59 Last Admin: 06/28/20 08:33 Dose: 1 tab Documented by: [id number] Admin: 06/27/20 09:08 Dose: 1 tab Documented by: [id number] Vitamin D (Cholecalciferol 1,000 Units 25 Mcg Tab) 2,000 units PO [facility] Stop: 07/27/20 08:59 Last Admin: 06/28/20 08:33 Dose: 2,000 units Documented by: [id number] Admin: 06/27/20 09:08 Dose: 2,000 units Documented by: [id number] Discontinued Medications Fludrocortisone Acetate (Fludrocortisone Acetate 0.1 Mg Tab) [facility] Stop: 07/27/20 12:14 Last Admin: 06/28/20 08:33 Dose: 0.1 mg Documented by: [id number] Admin: 06/27/20 13:20 Dose: 0.1 mg Documented by: [id number] Heparin Sodium/Dextrose (Heparin Iv Low Dose *No* Bolus) 1 ea N/A ONE ONE; Protocol Stop: 06/26/20 19:42 Last Admin: 06/26/20 20:30 Dose: Not Given Documented by: [id number] Sodium Chloride (Nss 1000ml) 1,000 mls @ 999 mls/hr IV .Q1H1M ILNDA Stop: 06/26/20 17:30 Last Infusion: 06/26/20 17:55 Dose: 0 mls/hr Documented by: [id number] Admin: 06/26/20 16:54 Dose: 999 mls/hr Documented by: [id number] Sodium Chloride (Nss 1000ml) 1,000 mls @ 125 mls/hr IV .Q8H LINDA Stop: 07/26/20 18:59 Last Infusion: 06/26/20 21:47 Dose: 0 mls/hr Documented by: [id number] Admin: 06/26/20 20:02 Dose: 125 mls/hr Documented by: [id number] Heparin Sodium/Dextrose (Heparin Sodium/Dextrose) 25,000 units in 500 mls @ 14 mls/hr IV .Q24H LINDA; Protocol Stop: 07/26/20 19:44 Last Titration: 06/26/20 22:13 Dose: 0 units/hr, 0 mls/hr Documented by: [id number] Cosigned by: [id number] Admin: 06/26/20 20:28 Dose: 700 units/hr, 14 mls/hr Documented by: [id number] Cosigned by: [id number] Sodium Chloride (Nss 1000ml) 1,000 mls @ 80 mls/hr IV .[id number] LINDA Stop: 06/27/20 10:09 Last Infusion: 06/27/20 10:41 Dose: 0 mls/hr Documented by: [id number] Admin: 06/26/20 22:04 Dose: 80 mls/hr Documented by: [id number] Ioversol (Optiray 320 125ml) 118 ml IV ONCE ONE Stop: 06/26/20 19:19 Last Admin: 06/26/20 19:19 Dose: 118 ml Documented by: [id number] Critical Care Time Critical Care Time: Yes Total Critical Care Time: 45 Critical care of 45 min performed to assess and manage high likelihood of life- threatening shortness of breath, involving labs and imaging performed with assessment to evaluate new dysrhythmia and Lyme disease diagnosis with frequent reassessment. This time includes bedside time, treatment discussions with patient/family/consultants, documentation time and excludes procedure time. Medical Decision Making Differential Diagnosis Differential diagnoses includes but is not limited to pneumonia, bronchitis, COPD/Asthma exacerbation, pneumothorax, pulmonary embolism, congestive heart failure, acute coronary syndrome Medical Records Attestation: I reviewed the patient's medical records. Home Medications Current Medication List: was personally reviewed by me Laboratory Data Attestation: I reviewed the patient's lab results. Result diagrams: 06/28/20 05:38 06/28/20 05:38 Lab Results 06/26/20 06/26/20 06/26/20 Range/Units 16:30 16:30 16:30 WBC 5.98 (4.8-10.8) K/uL RBC 4.11 L (4.7-6.1) M/uL Hgb 13.5 L (14.0-18.0) g/dL Hct 39.5 L (42-52) % MCV 96.1 (80-100) fL MCH 32.8 (25-34) pg MCHC 34.2 (32-36) g/dL RDW Std Deviation 46.1 (36.4-46.3) fL RDW Coeff of Jamaal 13.3 (11.5-14.5) % Plt Count 253 (130-400) K/uL MPV 9.9 (7.4-10.4) fL Immature Gran % (Auto) 0.2 % Neut % (Auto) 75.4 % Lymph % (Auto) 13.9 % Pierce % (Auto) 8.5 % Eos % (Auto) 1.8 % Baso % (Auto) 0.2 % Neut # (Auto) 4.51 (1.4-6.5) K/uL Lymph # (Auto) 0.83 L (1.2-3.4) K/uL Pierce # (Auto) 0.51 (0.11-0.59) K/uL Eos # (Auto) 0.11 (0-0.5) K/uL Baso # (Auto) 0.01 (0-0.2) K/uL Immature Gran # (Auto) 0.01 (0.00-0.02) K/uL PT 11.6 (9.0-12.0) Seconds INR 1.1 (0.9-1.1) APTT 27.5 (21.0-31.0) Seconds PTT Ratio 1.0 D-Dimer (0-500) ug/L FEU Sodium 137 (136-145) mmol/L Potassium 4.0 (3.5-5.1) mmol/L Chloride 106 (98-107) mmol/L Carbon Dioxide 24 (21-32) mmol/L Anion Gap 7.0 (3-11) BUN 12 (7-18) mg/dl Creatinine 0.75 (0.6-1.4) mg/dl Est Cr Clr Drug Dosing Not Reportable Est GFR ( Amer) 114.8 Est GFR (Non-Af Amer) 99.0 BUN/Creatinine Ratio 15.9 (10-20) Glucose 88 (70-99) mg/dl Lactate (0.4-2.0) mmol/L Calcium 8.9 (8.5-10.1) mg/dl Magnesium 2.2 (1.8-2.4) mg/dl Total Bilirubin 1.1 H (0.2-1) mg/dl AST 24 (15-37) U/L ALT 36 (12-78) U/L Alkaline Phosphatase 118 H (45-117) U/L Troponin I < 0.015 (0-0.045) ng/ml Total Protein 7.7 (6.4-8.2) gm/dl Albumin 3.7 (3.4-5.0) gm/dl Globulin 4.0 (2.5-4.0) gm/dl Albumin/Globulin Ratio 0.9 (0.9-2) Procalcitonin (0-0.5) ng/ml TSH 1.160 (0.300-4.500) uIu/ml Urine Color Urine Appearance (Clear) Urine pH (4.5-7.5) Ur Specific [place] (1.000-1.030) Urine Protein (Negative) Urine Glucose (UA) (Negative) Urine Ketones (Negative) Urine Blood (Negative) Urine Nitrite (Negative) Urine Bilirubin (Negative) Urine Urobilinogen (Negative) Ur Leukocyte Esterase (Negative) Urine WBC (Auto) (0-5) /hpf Urine RBC (Auto) (0-4) /hpf U Hyaline Cast (Auto) (0-5) /lpf U Epithel Cells (Auto) (0-5) /lpf Urine Bacteria (Auto) (Negative) Lyme Disease IgG Ab (Negative) Lyme Disease IgM Ab (Negative) COVID-19 Eval Order COVID-19 PCR (Negative) 06/26/20 06/26/20 06/26/20 Range/Units 16:30 16:30 16:30 WBC (4.8-10.8) K/uL RBC (4.7-6.1) M/uL Hgb (14.0-18.0) g/dL Hct (42-52) % MCV (80-100) fL MCH (25-34) pg MCHC (32-36) g/dL RDW Std Deviation (36.4-46.3) fL RDW Coeff of Jamaal (11.5-14.5) % Plt Count (130-400) K/uL MPV (7.4-10.4) fL Immature Gran % (Auto) % Neut % (Auto) % Lymph % (Auto) % Pierce % (Auto) % Eos % (Auto) % Baso % (Auto) % Neut # (Auto) (1.4-6.5) K/uL Lymph # (Auto) (1.2-3.4) K/uL Pierce # (Auto) (0.11-0.59) K/uL Eos # (Auto) (0-0.5) K/uL Baso # (Auto) (0-0.2) K/uL Immature Gran # (Auto) (0.00-0.02) K/uL PT (9.0-12.0) Seconds INR (0.9-1.1) APTT (21.0-31.0) Seconds PTT Ratio D-Dimer 1480 H* (0-500) ug/L FEU Sodium (136-145) mmol/L Potassium (3.5-5.1) mmol/L Chloride (98-107) mmol/L Carbon Dioxide (21-32) mmol/L Anion Gap (3-11) BUN (7-18) mg/dl Creatinine (0.6-1.4) mg/dl Est Cr Clr Drug Dosing Est GFR ( Amer) Est GFR (Non-Af Amer) BUN/Creatinine Ratio (10-20) Glucose (70-99) mg/dl Lactate (0.4-2.0) mmol/L Calcium (8.5-10.1) mg/dl Magnesium (1.8-2.4) mg/dl Total Bilirubin (0.2-1) mg/dl AST (15-37) U/L ALT (12-78) U/L Alkaline Phosphatase (45-117) U/L Troponin I (0-0.045) ng/ml Total Protein (6.4-8.2) gm/dl Albumin (3.4-5.0) gm/dl Globulin (2.5-4.0) gm/dl Albumin/Globulin Ratio (0.9-2) Procalcitonin < 0.05 (0-0.5) ng/ml TSH (0.300-4.500) uIu/ml Urine Color Urine Appearance (Clear) Urine pH (4.5-7.5) Ur Specific [place] (1.000-1.030) Urine Protein (Negative) Urine Glucose (UA) (Negative) Urine Ketones (Negative) Urine Blood (Negative) Urine Nitrite (Negative) Urine Bilirubin (Negative) Urine Urobilinogen (Negative) Ur Leukocyte Esterase (Negative) Urine WBC (Auto) (0-5) /hpf Urine RBC (Auto) (0-4) /hpf U Hyaline Cast (Auto) (0-5) /lpf U Epithel Cells (Auto) (0-5) /lpf Urine Bacteria (Auto) (Negative) Lyme Disease IgG Ab Positive A (Negative) Lyme Disease IgM Ab Positive A (Negative) COVID-19 Eval Order COVID-19 PCR (Negative) 06/26/20 06/26/20 06/26/20 Range/Units 16:45 17:20 17:20 WBC (4.8-10.8) K/uL RBC (4.7-6.1) M/uL Hgb (14.0-18.0) g/dL Hct (42-52) % MCV (80-100) fL MCH (25-34) pg MCHC (32-36) g/dL RDW Std Deviation (36.4-46.3) fL RDW Coeff of Jamaal (11.5-14.5) % Plt Count (130-400) K/uL MPV (7.4-10.4) fL Immature Gran % (Auto) % Neut % (Auto) % Lymph % (Auto) % Pierce % (Auto) % Eos % (Auto) % Baso % (Auto) % Neut # (Auto) (1.4-6.5) K/uL Lymph # (Auto) (1.2-3.4) K/uL Pierce # (Auto) (0.11-0.59) K/uL Eos # (Auto) (0-0.5) K/uL Baso # (Auto) (0-0.2) K/uL Immature Gran # (Auto) (0.00-0.02) K/uL PT (9.0-12.0) Seconds INR (0.9-1.1) APTT (21.0-31.0) Seconds PTT Ratio D-Dimer (0-500) ug/L FEU Sodium (136-145) mmol/L Potassium (3.5-5.1) mmol/L Chloride (98-107) mmol/L Carbon Dioxide (21-32) mmol/L Anion Gap (3-11) BUN (7-18) mg/dl Creatinine (0.6-1.4) mg/dl Est Cr Clr Drug Dosing Est GFR ( Amer) Est GFR (Non-Af Amer) BUN/Creatinine Ratio (10-20) Glucose (70-99) mg/dl Lactate 0.9 (0.4-2.0) mmol/L Calcium (8.5-10.1) mg/dl Magnesium (1.8-2.4) mg/dl Total Bilirubin (0.2-1) mg/dl AST (15-37) U/L ALT (12-78) U/L Alkaline Phosphatase (45-117) U/L Troponin I (0-0.045) ng/ml Total Protein (6.4-8.2) gm/dl Albumin (3.4-5.0) gm/dl Globulin (2.5-4.0) gm/dl Albumin/Globulin Ratio (0.9-2) Procalcitonin (0-0.5) ng/ml TSH (0.300-4.500) uIu/ml Urine Color Urine Appearance (Clear) Urine pH (4.5-7.5) Ur Specific [place] (1.000-1.030) Urine Protein (Negative) Urine Glucose (UA) (Negative) Urine Ketones (Negative) Urine Blood (Negative) Urine Nitrite (Negative) Urine Bilirubin (Negative) Urine Urobilinogen (Negative) Ur Leukocyte Esterase (Negative) Urine WBC (Auto) (0-5) /hpf Urine RBC (Auto) (0-4) /hpf U Hyaline Cast (Auto) (0-5) /lpf U Epithel Cells (Auto) (0-5) /lpf Urine Bacteria (Auto) (Negative) Lyme Disease IgG Ab (Negative) Lyme Disease IgM Ab (Negative) COVID-19 Eval Order Covid19 Done at [facility] COVID-19 PCR NEGATIVE (Negative) 06/26/20 Range/Units 17:30 WBC (4.8-10.8) K/uL RBC (4.7-6.1) M/uL Hgb (14.0-18.0) g/dL Hct (42-52) % MCV (80-100) fL MCH (25-34) pg MCHC (32-36) g/dL RDW Std Deviation (36.4-46.3) fL RDW Coeff of Jamaal (11.5-14.5) % Plt Count (130-400) K/uL MPV (7.4-10.4) fL Immature Gran % (Auto) % Neut % (Auto) % Lymph % (Auto) % Pierce % (Auto) % Eos % (Auto) % Baso % (Auto) % Neut # (Auto) (1.4-6.5) K/uL Lymph # (Auto) (1.2-3.4) K/uL Pierce # (Auto) (0.11-0.59) K/uL Eos # (Auto) (0-0.5) K/uL Baso # (Auto) (0-0.2) K/uL Immature Gran # (Auto) (0.00-0.02) K/uL PT (9.0-12.0) Seconds INR (0.9-1.1) APTT (21.0-31.0) Seconds PTT Ratio D-Dimer (0-500) ug/L FEU Sodium (136-145) mmol/L Potassium (3.5-5.1) mmol/L Chloride (98-107) mmol/L Carbon Dioxide (21-32) mmol/L Anion Gap (3-11) BUN (7-18) mg/dl Creatinine (0.6-1.4) mg/dl Est Cr Clr Drug Dosing Est GFR ( Amer) Est GFR (Non-Af Amer) BUN/Creatinine Ratio (10-20) Glucose (70-99) mg/dl Lactate (0.4-2.0) mmol/L Calcium (8.5-10.1) mg/dl Magnesium (1.8-2.4) mg/dl Total Bilirubin (0.2-1) mg/dl AST (15-37) U/L ALT (12-78) U/L Alkaline Phosphatase (45-117) U/L Troponin I (0-0.045) ng/ml Total Protein (6.4-8.2) gm/dl Albumin (3.4-5.0) gm/dl Globulin (2.5-4.0) gm/dl Albumin/Globulin Ratio (0.9-2) Procalcitonin (0-0.5) ng/ml TSH (0.300-4.500) uIu/ml Urine Color Yellow Urine Appearance Clear (Clear) Urine pH 6.5 (4.5-7.5) Ur Specific [place] 1.010 (1.000-1.030) Urine Protein Negative (Negative) Urine Glucose (UA) Negative (Negative) Urine Ketones Negative (Negative) Urine Blood Negative (Negative) Urine Nitrite Negative (Negative) Urine Bilirubin Negative (Negative) Urine Urobilinogen Negative (Negative) Ur Leukocyte Esterase Trace H (Negative) Urine WBC (Auto) 1-5 (0-5) /hpf Urine RBC (Auto) 0-4 (0-4) /hpf U Hyaline Cast (Auto) 0 (0-5) /lpf U Epithel Cells (Auto) 0-5 (0-5) /lpf Urine Bacteria (Auto) Negative (Negative) Lyme Disease IgG Ab (Negative) Lyme Disease IgM Ab (Negative) COVID-19 Eval Order COVID-19 PCR (Negative) Imaging Data Radiologist's Impression: XR chest 1V portable CLINICAL HISTORY: SEPSIS COMPARISON STUDY: December 20, 2018 FINDINGS: The heart is the upper limits of normal in size. There is no failure. There is no focal pulmonary consolidation. There are no pleural effusions.[ IMPRESSION: No active disease in the chest. ACT 112: Negative or not required by law. Electronically signed by: Amol Bird M.D. 06/26/2020 5:[address] ANGIOGRAM OF THE CHEST CLINICAL HISTORY: Shortness of breath. Sepsis. Possible pulmonary embolism. COMPARISON STUDY: 12/20/2018 TECHNIQUE: Following the IV administration of 118 mL of Optiray-320, CT angiogram of the thorax was performed from the thoracic inlet to the lung bases utilizing the pulmonary embolus protocol. Images are reviewed in the axial, sagittal, and coronal planes. IV contrast was administered without complication. MIP imaging was performed. A dose lowering technique was utilized adhering to the principles of ALARA. CT DOSE: 513.99 mGy.cm FINDINGS: The visualized portions the upper abdomen reveal bilateral renal calculi. There is an 18 mm exophytic upper pole right renal lesion likely representing a cyst. There is no evidence of pathologic mediastinal lymphadenopathy. Hilar nodes are the upper limits of normal in size. There was no evidence of thoracic aortic dilatation. There were no pulmonary artery filling defects to indicate acute pulmonary embolism. No pleural effusions are visualized. There is mild dependent atelectasis. There are no areas of parenchymal consolidation to indicate a pneumonia. There is a stable 6 mm right lower lobe perifissural nodule. A 6 mm subpleural opacity within the lingula and all likelihood represents focal atelectasis. There is a 2 mm right apical calcified granuloma IMPRESSION: 1. No evidence of acute pulmonary embolism 2. No evidence of pneumonia 3. Bilateral nephrolithiasis 4. Stable 6 mm right lower lobe perifissural nodule 5. 6 mm subpleural lingular opacity, likely representing focal atelectasis ACT 112: Negative or not required by law. Electronically signed by: Amol Bird M.D. 06/26/2020 7:33 PM US venous doppler LE CLINICAL HISTORY: Leg swelling. History of DVT. COMPARISON STUDY: 12/20/2018 FINDINGS: Real-time and color flow Doppler imaging were performed. Flow was seen within the femoral, popliteal and calf veins with no intraluminal thrombus demonstrated. The saphenous vein is patent. IMPRESSION: No evidence of lower extremity DVT. ACT 112: Negative or not required by law. Electronically signed by: Amol Bird M.D. 06/26/2020 7:59 PM ECG Data Attestation: I personally reviewed and interpreted this ECG as follows: Indication: + SOB/dyspnea Rate (beats per minute): 84 Rhythm: + atrial fibrillation ECG Intervals/blocks: + Normal QRS and + Normal QT ECG [place]: + Normal ECG ST segments: + Nonspecific ST abnormalities Blood Pressure Blood Pressure Findings: Normal blood pressure MDM Narrative 59 yo males presents with concern for 2 weeks of SOB, ROGERS, and cough. Pt most concerned about COVID, his patient advocate concerned about CHF. Pt with no cardiac hx and was noted to be in atrial fibrillation on tele. Labs drawn and sent including cultures and septic evaluation, pt started on IVF. CXR reassuring. COVID negative. No record of a.fib on my review in the EMR. I discussed results with pt and his advocate that given other labs and imaging reassuring, I was more concerned that his dysrhythmia was causing his symptoms and not a pulmonary infection. 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 Pt did state he has had tick bites before but was tested for lyme prior and was told these were negative. No evidence of thyroid storm. I do not suspect sepsis. COVID negative. Pt rate controlled throughout and otw hemodynamically stable throughout. CTA chest negative for PE or other concerning pathology. Pt stated on heparin in light of a.fib. US LE pending at the time of discussion with the hospitalist. Pt started on doxycycline. Pt kept aware of all results and was in agreement with the plan. An order was placed for continuous cardiac monitoring. The monitor shows a rate of 72_ with _atrial fibrillation_ rhythm. Impression & Plan Acute dyspnea, Atrial fibrillation, new onset, Cough, Chest pain, Acute Lyme disease Discharge Plan Visit Data Chief Complaint: Shortness of Breath/Dyspnea Stated Complaint: SOB,COUGH ED Provider: Mishel Hernandez Discharge Problem: Acute dyspnea, Atrial fibrillation, new onset, Cough, Chest pain, Acute Lyme disease Patient Disposition: Admitted As Inpatient Discharge Instructions Interventions: ED Discharge Assessment Last Done: 06/26/20 21:20 Discharge Problem: Chest pain Qualifiers: Chest pain type: unspecified Qualified Code(s): R07.9 - Chest pain, unspecified
[2020-06-26 18:48] LABS: Lyme Ab IgG w/WB Rflx Positive (Negative); Lyme Ab IgM w/WB Rflx Positive (Negative)
[2020-06-26] MEDS ORDERED: OPTIRAY 320 125ml IV ONE (19:18)
--- NOTE | 2020-06-26 19:34 | CT Scan Report ---
CT ANGIOGRAM OF THE CHEST CLINICAL HISTORY: Shortness of breath. Sepsis. Possible pulmonary embolism. COMPARISON STUDY: 12/20/2018 TECHNIQUE: Following the IV administration of 118 mL of Optiray-320, CT angiogram of the thorax was p erformed from the thoracic inlet to the lung bases utilizing the pulmonary embolus protocol. Images a re reviewed in the axial, sagittal, and coronal planes. IV contrast was administered without complica tion. MIP imaging was performed. A dose lowering technique was utilized adhering to the principles o f ALARA. CT DOSE: 513.99 mGy.cm FINDINGS: The visualized portions the upper abdomen reveal bilateral renal calculi. There is an 18 mm exophytic upper pole right renal lesion likely representing a cyst. There is no evidence of pathologic mediastinal lymphadenopathy. Hilar nodes are the upper limits of n ormal in size. There was no evidence of thoracic aortic dilatation. There were no pulmonary artery filling defects to indicate acute pulmonary embolism. No pleural effusions are visualized. There is mild dependent atelectasis. There are no areas of parenchymal consolidation to indicate a pn eumonia. There is a stable 6 mm right lower lobe perifissural nodule. A 6 mm subpleural opacity withi n the lingula and all likelihood represents focal atelectasis. There is a 2 mm right apical calcified granuloma IMPRESSION: 1. No evidence of acute pulmonary embolism 2. No evidence of pneumonia 3. Bilateral nephrolithiasis 4. Stable 6 mm right lower lobe perifissural nodule 5. 6 mm subpleural lingular opacity, likely representing focal atelectasis ACT 112: Negative or not required by law. Electronically signed by: Amol Bird M.D. 06/26/2020 7:33 PM
[2020-06-26] MEDS ORDERED: Heparin IV Low Dose *NO* Bolus ONE (19:41)
[2020-06-26] MEDS ORDERED: HEPARIN SODIUM/DEXTROSE 25,000 UNITS/500 ML BAG IV SCH (19:45)
--- NOTE | 2020-06-26 20:00 | Ultrasound Report ---
US venous doppler LE BI CLINICAL HISTORY: Leg swelling. History of DVT. COMPARISON STUDY: 12/20/2018 FINDINGS: Real-time and color flow Doppler imaging were performed. Flow was seen within the femoral, popliteal and calf veins with no intraluminal thrombus demonstrated. The saphenous vein is patent. IMPRESSION: No evidence of lower extremity DVT. ACT 112: Negative or not required by law. Electronically signed by: Amol Bird M.D. 06/26/2020 7:59 PM
--- NOTE | 2020-06-26 20:33 | History & Physical Report ---
Date of Service June 26, 2020 Assessment & Plan (1) Atrial fibrillation, new onset: Patient with positive Lyme IgG and IgM. +Tick bites in the past. Western blood confirmation pending. Uncertain if new onset atrial fibrillation is secondary to Lyme disease/carditis. While not the typical presentation of lyme carditis there are some case reports of new onset AF in the setting of Lyme disease. Patient is rate controlled. Troponin negative. Electrolytes and TSH within normal limits. [id number] score = 0. Low risk, 0.2% per year stroke risk. -Admit to medical with Telemetry -Check 2D echocardiogram -Heparin gtt initiated in ER - due to low risk of stroke associated with AF (CHADS2-Vasc=0) will discontinue heparin -Cardiology consultation appreciated Present on Admission?: Yes (2) Lyme disease: As above. -Awaiting results of Western blot confirmatory testing -Ceftriaxone 2gm IV daily, first dose now -Check Anaplasmosis Ab Present on Admission?: Yes (3) Cough: Patient endorses cough, SOB and ROGERS since 09 Jun 2020. He does not appear to be in failure on exam, CXR unremarkable. Covid-19 negative. No evidence of infection. -Echo as above Present on Admission?: Yes (4) Glaucoma: Chronic -Continue dorzolamide-timolol, latanoprost F/E/N- NSS at 80mL/hr, monitor electrolytes, regular diet as tolerated Ppx - low risk for dvt Code - Full Dispo -Admit to med/Surg with telemetry Present on Admission?: Yes History of Present Illness Chief Complaint: weakness, fatigue, cough, SOB Primary Care Provider: Brooks Najera Mr. Roland Cochran is a 59yo C male presenting with symptoms beginning on 09 Jun 2020. Patient describes constant cough productive for occasional clear mucus, SOB, ROGERS and extreme fatigue. He states he becomes tired with ambulating less than 20 feet in his home. He also describes "a bird in his chest", palpitations. He has occasional nausea, chest discomfort and cold sweats. He denies orthopnea, edema or weight gain. Patient also endorses years of body aches, joint pain and fatigue. [place] and has had multiple tick bites in the past. He has never tested positive for Lyme disease before. Patient with remote history of septic shock requiring prolonged hospitalization. Patient reports that he has had significant short term memory loss since then. No additional complaints at this time. Patient has a caregiver/advocate that assists him during medical care. She was not present during my encounter but will be coming to his room later this evening. ER Course: Heparin drip, NSS x 2L Allergies Allergy/AdvReac Type Severity Reaction Status Date / Time walnut Allergy Severe THROAT Verified 06/26/20 17:13 SWELLS ciprofloxacin Allergy Mild RASH Verified 06/26/20 17:13 Cipro Allergy Unknown RASH Verified 03/23/18 16:18 Penicillins Allergy Unknown UNKNOWN Verified 06/26/20 17:13 hydrocodone AdvReac Intermediate DIZZY Verified 06/26/20 17:14 oxycodone AdvReac Intermediate dizzy Verified 06/26/20 17:14 spells sulfamethoxazole AdvReac Intermediate DIZZY Verified 06/26/20 17:14 terazosin AdvReac Intermediate wicked Verified 06/26/20 17:15 dizzy tramadol AdvReac Intermediate "WAY OUT Verified 06/26/20 17:15 IN OUTER SPACE" trimethoprim AdvReac Intermediate DIZZY Verified 06/26/20 17:15 Bactrim AdvReac Unknown DIZZY Verified 03/23/18 16:18 Home Medications Home Medications Medication Instructions Recorded Confirmed Type dorzolamide-timolol 1 drp OPB BID 08/03/18 06/26/20 History latanoprost 1 drp OPB HS 08/03/18 06/26/20 History cholecalciferol (vitamin D3) 2,000 unit PO DAILY 08/07/19 06/26/20 History [Vitamin D3] multivitamin 1 tab PO DAILY 08/07/19 06/26/20 History Past Med/Surg History Medical History (Updated 06/26/20 @ 22:14 by Lilli Oliver DO) Diverticulitis Glaucoma Lyme disease Precordial chest pain Rib fractures Right flank pain Right ureteral stone Septic shock UTI (urinary tract infection) Surgical History (Updated 06/26/20 @ 20:54 by Lilli Oliver DO) History of bladder surgery Hx of fasciotomy Family History (Updated 06/26/20 @ 20:59 by Lilli Oliver DO) Other Adopted Social History (Updated 06/26/20 @ 21:00 by Lilli M Benito, DO) Smoking Status: Never smoker Hx Alcohol Use: No Hx Substance Use: No Current Living Situation: Alone Feels Safe at Home: Yes Review of Systems Review of Systems: All systems reviewed & are unremarkable except as noted in HPI & below Physical Exam Physical Exam: General: patient resting comfortably, NAD, non-toxic in appearance, AA&O x 4 Skin: warm, dry, intact, no rashes or lesions HEENT: NC/AT, PERRL, EOMI, anicteric sclera, conjunctiva without injection, external ear normal to inspection and nontender, nares patent, moist mucus membranes, dentition intact, no oropharyngeal lesions, neck supple, trachea midline, no LAD, no thyromegaly, no JVD Heart: +S1/S2, irregularly irregular, no m/r/g Lungs: equal air entry bilaterally, no rales/rhonchi/wheezes Abd: +BS, soft, NT/ND, no masses/organomegaly/ascites Ext: warm, 2+ pulses in UE/LE bilaterally, no clubbing/cyanosis or edema Neuro: nonfocal, patient AA&O x 4, speech intact, no facial droop, moving all extremities on command with equal strength 5/5 Results & Data Results & Data ([facility]) Vital Signs (Past 12 Hours) Vital Signs Temp Pulse Resp BP Pulse Ox 06/26/20 20:00 72 18 98/65 L 96 06/26/20 19:00 71 16 99/71 L 97 06/26/20 18:00 79 20 112/60 97 06/26/20 17:30 70 13 106/64 97 06/26/20 17:08 79 15 103/66 99 06/26/20 16:56 97 06/26/20 16:55 97 06/26/20 16:30 97 06/26/20 16:01 87 27 H 98/64 L 98 06/26/20 13:32 37.2 C 111 H 20 108/74 94 Laboratory Results Lab Results 06/26/20 06/26/20 06/26/20 Range/Units 16:30 16:30 16:30 WBC 5.98 (4.8-10.8) K/uL RBC 4.11 L (4.7-6.1) M/uL Hgb 13.5 L (14.0-18.0) g/dL Hct 39.5 L (42-52) % MCV 96.1 (80-100) fL MCH 32.8 (25-34) pg MCHC 34.2 (32-36) g/dL RDW Std Deviation 46.1 (36.4-46.3) fL RDW Coeff of Jamaal 13.3 (11.5-14.5) % Plt Count 253 (130-400) K/uL MPV 9.9 (7.4-10.4) fL Immature Gran % (Auto) 0.2 % Neut % (Auto) 75.4 % Lymph % (Auto) 13.9 % [place] % (Auto) 8.5 % Eos % (Auto) 1.8 % Baso % (Auto) 0.2 % Neut # (Auto) 4.51 (1.4-6.5) K/uL Lymph # (Auto) 0.83 L (1.2-3.4) K/uL [place] # (Auto) 0.51 (0.11-0.59) K/uL Eos # (Auto) 0.11 (0-0.5) K/uL Baso # (Auto) 0.01 (0-0.2) K/uL Immature Gran # (Auto) 0.01 (0.00-0.02) K/uL PT 11.6 (9.0-12.0) Seconds INR 1.1 (0.9-1.1) APTT 27.5 (21.0-31.0) Seconds PTT Ratio 1.0 D-Dimer (0-500) ug/L FEU Sodium 137 (136-145) mmol/L Potassium 4.0 (3.5-5.1) mmol/L Chloride 106 (98-107) mmol/L Carbon Dioxide 24 (21-32) mmol/L Anion Gap 7.0 (3-11) BUN 12 (7-18) mg/dl Creatinine 0.75 (0.6-1.4) mg/dl Est Cr Clr Drug Dosing Not Reportable Est GFR ( Amer) 114.8 Est GFR (Non-Af Amer) 99.0 BUN/Creatinine Ratio 15.9 (10-20) Glucose 88 (70-99) mg/dl Lactate (0.4-2.0) mmol/L Calcium 8.9 (8.5-10.1) mg/dl Magnesium 2.2 (1.8-2.4) mg/dl Total Bilirubin 1.1 H (0.2-1) mg/dl AST 24 (15-37) U/L ALT 36 (12-78) U/L Alkaline Phosphatase 118 H (45-117) U/L Troponin I < 0.015 (0-0.045) ng/ml Total Protein 7.7 (6.4-8.2) gm/dl Albumin 3.7 (3.4-5.0) gm/dl Globulin 4.0 (2.5-4.0) gm/dl Albumin/Globulin Ratio 0.9 (0.9-2) Procalcitonin (0-0.5) ng/ml TSH 1.160 (0.300-4.500) uIu/ml Urine Color Urine Appearance (Clear) Urine pH (4.5-7.5) Ur Specific [place] (1.000-1.030) Urine Protein (Negative) Urine Glucose (UA) (Negative) Urine Ketones (Negative) Urine Blood (Negative) Urine Nitrite (Negative) Urine Bilirubin (Negative) Urine Urobilinogen (Negative) Ur Leukocyte Esterase (Negative) Urine WBC (Auto) (0-5) /hpf Urine RBC (Auto) (0-4) /hpf U Hyaline Cast (Auto) (0-5) /lpf U Epithel Cells (Auto) (0-5) /lpf Urine Bacteria (Auto) (Negative) Lyme Disease IgG Ab (Negative) Lyme Disease IgM Ab (Negative) COVID-19 Eval Order COVID-19 PCR (Negative) 06/26/20 06/26/20 06/26/20 Range/Units 16:30 16:30 16:30 WBC (4.8-10.8) K/uL RBC (4.7-6.1) M/uL Hgb (14.0-18.0) g/dL Hct (42-52) % MCV (80-100) fL MCH (25-34) pg MCHC (32-36) g/dL RDW Std Deviation (36.4-46.3) fL RDW Coeff of Jamaal (11.5-14.5) % Plt Count (130-400) K/uL MPV (7.4-10.4) fL Immature Gran % (Auto) % Neut % (Auto) % Lymph % (Auto) % [place] % (Auto) % Eos % (Auto) % Baso % (Auto) % Neut # (Auto) (1.4-6.5) K/uL Lymph # (Auto) (1.2-3.4) K/uL [place] # (Auto) (0.11-0.59) K/uL Eos # (Auto) (0-0.5) K/uL Baso # (Auto) (0-0.2) K/uL Immature Gran # (Auto) (0.00-0.02) K/uL PT (9.0-12.0) Seconds INR (0.9-1.1) APTT (21.0-31.0) Seconds PTT Ratio D-Dimer 1480 H* (0-500) ug/L FEU Sodium (136-145) mmol/L Potassium (3.5-5.1) mmol/L Chloride (98-107) mmol/L Carbon Dioxide (21-32) mmol/L Anion Gap (3-11) BUN (7-18) mg/dl Creatinine (0.6-1.4) mg/dl Est Cr Clr Drug Dosing Est GFR ( Amer) Est GFR (Non-Af Amer) BUN/Creatinine Ratio (10-20) Glucose (70-99) mg/dl Lactate (0.4-2.0) mmol/L Calcium (8.5-10.1) mg/dl Magnesium (1.8-2.4) mg/dl Total Bilirubin (0.2-1) mg/dl AST (15-37) U/L ALT (12-78) U/L Alkaline Phosphatase (45-117) U/L Troponin I (0-0.045) ng/ml Total Protein (6.4-8.2) gm/dl Albumin (3.4-5.0) gm/dl Globulin (2.5-4.0) gm/dl Albumin/Globulin Ratio (0.9-2) Procalcitonin < 0.05 (0-0.5) ng/ml TSH (0.300-4.500) uIu/ml Urine Color Urine Appearance (Clear) Urine pH (4.5-7.5) Ur Specific [place] (1.000-1.030) Urine Protein (Negative) Urine Glucose (UA) (Negative) Urine Ketones (Negative) Urine Blood (Negative) Urine Nitrite (Negative) Urine Bilirubin (Negative) Urine Urobilinogen (Negative) Ur Leukocyte Esterase (Negative) Urine WBC (Auto) (0-5) /hpf Urine RBC (Auto) (0-4) /hpf U Hyaline Cast (Auto) (0-5) /lpf U Epithel Cells (Auto) (0-5) /lpf Urine Bacteria (Auto) (Negative) Lyme Disease IgG Ab Positive A (Negative) Lyme Disease IgM Ab Positive A (Negative) COVID-19 Eval Order COVID-19 PCR (Negative) 06/26/20 06/26/20 06/26/20 Range/Units 16:45 17:20 17:20 WBC (4.8-10.8) K/uL RBC (4.7-6.1) M/uL Hgb (14.0-18.0) g/dL Hct (42-52) % MCV (80-100) fL MCH (25-34) pg MCHC (32-36) g/dL RDW Std Deviation (36.4-46.3) fL RDW Coeff of Jamaal (11.5-14.5) % Plt Count (130-400) K/uL MPV (7.4-10.4) fL Immature Gran % (Auto) % Neut % (Auto) % Lymph % (Auto) % [place] % (Auto) % Eos % (Auto) % Baso % (Auto) % Neut # (Auto) (1.4-6.5) K/uL Lymph # (Auto) (1.2-3.4) K/uL [place] # (Auto) (0.11-0.59) K/uL Eos # (Auto) (0-0.5) K/uL Baso # (Auto) (0-0.2) K/uL Immature Gran # (Auto) (0.00-0.02) K/uL PT (9.0-12.0) Seconds INR (0.9-1.1) APTT (21.0-31.0) Seconds PTT Ratio D-Dimer (0-500) ug/L FEU Sodium (136-145) mmol/L Potassium (3.5-5.1) mmol/L Chloride (98-107) mmol/L Carbon Dioxide (21-32) mmol/L Anion Gap (3-11) BUN (7-18) mg/dl Creatinine (0.6-1.4) mg/dl Est Cr Clr Drug Dosing Est GFR ( Amer) Est GFR (Non-Af Amer) BUN/Creatinine Ratio (10-20) Glucose (70-99) mg/dl Lactate 0.9 (0.4-2.0) mmol/L Calcium (8.5-10.1) mg/dl Magnesium (1.8-2.4) mg/dl Total Bilirubin (0.2-1) mg/dl AST (15-37) U/L ALT (12-78) U/L Alkaline Phosphatase (45-117) U/L Troponin I (0-0.045) ng/ml Total Protein (6.4-8.2) gm/dl Albumin (3.4-5.0) gm/dl Globulin (2.5-4.0) gm/dl Albumin/Globulin Ratio (0.9-2) Procalcitonin (0-0.5) ng/ml TSH (0.300-4.500) uIu/ml Urine Color Urine Appearance (Clear) Urine pH (4.5-7.5) Ur Specific [place] (1.000-1.030) Urine Protein (Negative) Urine Glucose (UA) (Negative) Urine Ketones (Negative) Urine Blood (Negative) Urine Nitrite (Negative) Urine Bilirubin (Negative) Urine Urobilinogen (Negative) Ur Leukocyte Esterase (Negative) Urine WBC (Auto) (0-5) /hpf Urine RBC (Auto) (0-4) /hpf U Hyaline Cast (Auto) (0-5) /lpf U Epithel Cells (Auto) (0-5) /lpf Urine Bacteria (Auto) (Negative) Lyme Disease IgG Ab (Negative) Lyme Disease IgM Ab (Negative) COVID-19 Eval Order Covid19 Done at [facility] COVID-19 PCR NEGATIVE (Negative) 06/26/20 Range/Units 17:30 WBC (4.8-10.8) K/uL RBC (4.7-6.1) M/uL Hgb (14.0-18.0) g/dL Hct (42-52) % MCV (80-100) fL MCH (25-34) pg MCHC (32-36) g/dL RDW Std Deviation (36.4-46.3) fL RDW Coeff of Jamaal (11.5-14.5) % Plt Count (130-400) K/uL MPV (7.4-10.4) fL Immature Gran % (Auto) % Neut % (Auto) % Lymph % (Auto) % [place] % (Auto) % Eos % (Auto) % Baso % (Auto) % Neut # (Auto) (1.4-6.5) K/uL Lymph # (Auto) (1.2-3.4) K/uL [place] # (Auto) (0.11-0.59) K/uL Eos # (Auto) (0-0.5) K/uL Baso # (Auto) (0-0.2) K/uL Immature Gran # (Auto) (0.00-0.02) K/uL PT (9.0-12.0) Seconds INR (0.9-1.1) APTT (21.0-31.0) Seconds PTT Ratio D-Dimer (0-500) ug/L FEU Sodium (136-145) mmol/L Potassium (3.5-5.1) mmol/L Chloride (98-107) mmol/L Carbon Dioxide (21-32) mmol/L Anion Gap (3-11) BUN (7-18) mg/dl Creatinine (0.6-1.4) mg/dl Est Cr Clr Drug Dosing Est GFR ( Amer) Est GFR (Non-Af Amer) BUN/Creatinine Ratio (10-20) Glucose (70-99) mg/dl Lactate (0.4-2.0) mmol/L Calcium (8.5-10.1) mg/dl Magnesium (1.8-2.4) mg/dl Total Bilirubin (0.2-1) mg/dl AST (15-37) U/L ALT (12-78) U/L Alkaline Phosphatase (45-117) U/L Troponin I (0-0.045) ng/ml Total Protein (6.4-8.2) gm/dl Albumin (3.4-5.0) gm/dl Globulin (2.5-4.0) gm/dl Albumin/Globulin Ratio (0.9-2) Procalcitonin (0-0.5) ng/ml TSH (0.300-4.500) uIu/ml Urine Color Yellow Urine Appearance Clear (Clear) Urine pH 6.5 (4.5-7.5) Ur Specific [place] 1.010 (1.000-1.030) Urine Protein Negative (Negative) Urine Glucose (UA) Negative (Negative) Urine Ketones Negative (Negative) Urine Blood Negative (Negative) Urine Nitrite Negative (Negative) Urine Bilirubin Negative (Negative) Urine Urobilinogen Negative (Negative) Ur Leukocyte Esterase Trace H (Negative) Urine WBC (Auto) 1-5 (0-5) /hpf Urine RBC (Auto) 0-4 (0-4) /hpf U Hyaline Cast (Auto) 0 (0-5) /lpf U Epithel Cells (Auto) 0-5 (0-5) /lpf Urine Bacteria (Auto) Negative (Negative) Lyme Disease IgG Ab (Negative) Lyme Disease IgM Ab (Negative) COVID-19 Eval Order COVID-19 PCR (Negative) Diagnostic Findings CT ANGIOGRAM OF THE CHEST CLINICAL HISTORY: Shortness of breath. Sepsis. Possible pulmonary embolism. COMPARISON STUDY: 12/20/2018 TECHNIQUE: Following the IV administration of 118 mL of Optiray-320, CT angiogram of the thorax was performed from the thoracic inlet to the lung bases utilizing the pulmonary embolus protocol. Images are reviewed in the axial, sagittal, and coronal planes. IV contrast was administered without complication. MIP imaging was performed. A dose lowering technique was utilized adhering to the principles of ALARA. CT DOSE: 513.99 mGy.cm FINDINGS: The visualized portions the upper abdomen reveal bilateral renal calculi. There is an 18 mm exophytic upper pole right renal lesion likely representing a cyst. There is no evidence of pathologic mediastinal lymphadenopathy. Hilar nodes are the upper limits of normal in size. There was no evidence of thoracic aortic dilatation. There were no pulmonary artery filling defects to indicate acute pulmonary embolism. No pleural effusions are visualized. There is mild dependent atelectasis. There are no areas of parenchymal consolidation to indicate a pneumonia. There is a stable 6 mm right lower lobe perifissural nodule. A 6 mm subpleural opacity within the lingula and all likelihood represents focal atelectasis. There is a 2 mm right apical calcified granuloma IMPRESSION: 1. No evidence of acute pulmonary embolism 2. No evidence of pneumonia 3. Bilateral nephrolithiasis 4. Stable 6 mm right lower lobe perifissural nodule 5. 6 mm subpleural lingular opacity, likely representing focal atelectasis ACT 112: Negative or not required by law. Electronically signed by: Amol Bird M.D. 06/26/2020 7:33 PM Dictated: 06/26/20 1926 Transcribed: 06/26/20 192 Code Status & VTE Plan Code Status Full PG Care Time/CCT Total # of Minutes Spent Total Time Spent with Patient: Total time spent is greater than 50% in coordination of care (as documented) at patient's floor/unit and/or counseling patient: Coding Level of Care Code 64980 Initial Inpt Care Lvl 3 Diagnoses Atrial fibrillation, new onset I48.91 Lyme disease A69.20 Cough R05 Glaucoma H40.9 Glaucoma type: unspecified Laterality: bilateral (1) Glaucoma Glaucoma type: unspecified Laterality: bilateral Qualified Code(s): H40.9 - Unspecified glaucoma
[2020-06-26] MEDS ORDERED: DOXYCYCLINE HYCLATE 100 MG CAP PO STA (21:12)
[2020-06-26] MEDS ORDERED: ACETAMINOPHEN 325 MG TAB PO PRN (21:40)
[2020-06-26] MEDS: LATANOPROST 0.005% OP SOLN 2.5 ML BTL OPB SCH (22:00)
[2020-06-26] MEDS: DORZOLAMIDE/TIMOLOL 22.3/6.8MG/ML 10 ML BTL OPB SCH (22:01)
[2020-06-26] MEDS: cefTRIAXone SODIUM 2,000 MG in DEXTROSE 5% 50 ML IV SCH (23:19)
[2020-06-27 07:12] LABS: Basophils # (auto) 0.01 K/uL (0-0.2); Basophils % (auto) 0.1 %; Eosinophils # (auto) 0.13 K/uL (0-0.5); Eosinophils % (auto) 1.8 %; Hematocrit (blood only) 36.4 % (42-52); Hemoglobin 11.9 g/dL (14.0-18.0); Immature Granulocytes # (auto) 0.01 K/uL (0.00-0.02); Immature Granulocytes % (auto) 0.1 %; Lymphocytes % (auto) 9.6 %; Mean Corpuscular Hemoglobin 32.2 pg (25-34); Mean Corpuscular Hgb Conc 32.7 g/dL (32-36); Mean Corpuscular Volume 98.6 fL (80-100); Mean Platelet Volume 9.5 fL (7.4-10.4); Monocytes # (auto) 0.68 K/uL (0.11-0.59); Monocytes % (auto) 9.3 %; Neutrophils # (auto) 5.79 K/uL (1.4-6.5); Neutrophils % (auto) 79.1 %; Platelet Count 211 K/uL (130-400); RDW Coefficient of Variation 13.7 % (11.5-14.5); RDW Standard Deviation 48.7 fL (36.4-46.3); Red Blood Count 3.69 M/uL (4.7-6.1); White Blood Count 7.32 K/uL (4.8-10.8)
[2020-06-27] MEDS: DORZOLAMIDE/TIMOLOL 22.3/6.8MG/ML 10 ML BTL OPB SCH ×2 (07:35→21:02)
[2020-06-27 07:39] LABS: Alanine Aminotransferase 29 U/L (12-78); Alkaline Phosphatase 101 U/L (45-117); Aspartate Aminotransferase 21 U/L (15-37); BUN Creatinine Ratio 19.7 (10-20); Bilirubin Direct 0.1 mg/dl (0-0.2); Bilirubin,Total 0.4 mg/dl (0.2-1); Blood Urea Nitrogen 14 mg/dl (7-18); Calcium 8.5 mg/dl (8.5-10.1); Carbon Dioxide 22 mmol/L (21-32); Chloride 111 mmol/L (98-107); Est GFR (African American) 115.4; Est GFR (Non-African American) 99.6; Glucose 98 mg/dl (70-99); Potassium 3.9 mmol/L (3.5-5.1); Sodium 139 mmol/L (136-145); Total Protein 6.4 gm/dl (6.4-8.2)
[2020-06-27] MEDS ORDERED: DOXYCYCLINE HYCLATE 100 MG CAP PO SCH (09:00)
[2020-06-27] MEDS: CHOLECALCIFEROL 1,000 UNITS 25 MCG TAB PO SCH (09:08)
[2020-06-27] MEDS: MULTIVITAMIN TAB PO SCH (09:08)
--- NOTE | 2020-06-27 12:15 | Cardiology Consultation ---
Date of Consultation Patient is admitted to the hospital with palpitations, shortness of breath and associated cough, lightheadedness and dizziness, and a sense of overall wea kness. He notes he is a chronically low blood pressures in the mid 80s to low 90s since he had a multiple episodes of sepsis in 2015. He notes when he walks his legs feel weak generally. Since June 09 he is also had chest tightness he notes he just feels like he cannot take a deep breath it is not worse lying flat nor better sitting up in fact is worse sitting up. He denies any radiation to his neck jaw back or arm. He does describe it as a mild heaviness. We will brought him to the emergency room as the fact that he felt fluttering in his chest which was new for him he describes it as a having a bird inside of his chest. He was found to be in atrial fibrillation with a controlled ventricular response. He is on no AV dante blockers as an outpatient and his rate is well controlled on his EKG. He has no lower extremity edema denies any increased abdominal distention in fact he is had weight loss. His IgM and IgG titers for Lyme disease are both positive. His Western blot is pending. His troponin is negative. He denies a history of prior cardiovascular disease. He is accompanied by an advocate in the room who is able to help him with his history. He notes he normally does not do a lot of activity as he just feels weak and tired this was even before June 09. He does have a [place]ed property. He does not take the trash to the end of the driveway and he drives to the mailbox. He lives all on 1 floor and does not carry stairs. He notes when he does grocery shop once or twice a month he feels like he needs to hold onto the cart as he feels weak. The rest of a complete her systems otherwise negative June 27, 2020 History of Present Illness Attending Physician: Kingston Aguayo MD Allergies Allergy/AdvReac Type Severity Reaction Status Date / Time walnut Allergy Severe THROAT Verified 06/26/20 17:13 SWELLS ciprofloxacin Allergy Mild RASH Verified 06/26/20 17:13 Cipro Allergy Unknown RASH Verified 03/23/18 16:18 Penicillins Allergy Unknown UNKNOWN Verified 06/26/20 17:13 hydrocodone AdvReac Intermediate DIZZY Verified 06/26/20 17:14 oxycodone AdvReac Intermediate dizzy Verified 06/26/20 17:14 spells sulfamethoxazole AdvReac Intermediate DIZZY Verified 06/26/20 17:14 terazosin AdvReac Intermediate wicked Verified 06/26/20 17:15 dizzy tramadol AdvReac Intermediate "WAY OUT Verified 06/26/20 17:15 IN OUTER SPACE" trimethoprim AdvReac Intermediate DIZZY Verified 06/26/20 17:15 Bactrim AdvReac Unknown DIZZY Verified 03/23/18 16:18 Home Medications Home Medications Medication Instructions Recorded Confirmed Type dorzolamide-timolol 1 drp OPB BID 08/03/18 06/26/20 History latanoprost 1 drp OPB HS 08/03/18 06/26/20 History cholecalciferol (vitamin D3) 2,000 unit PO DAILY 08/07/19 06/26/20 History [Vitamin D3] multivitamin 1 tab PO DAILY 08/07/19 06/26/20 History Patient History Medical History Diverticulitis Glaucoma Lyme disease Precordial chest pain Rib fractures Right flank pain Right ureteral stone Septic shock UTI (urinary tract infection) Surgical History History of bladder surgery Hx of fasciotomy Family History Other Adopted Social History Smoking Status: Never smoker Hx Alcohol Use: No Hx Substance Use: No Preferred Language: Georgian Communication Ability: Effective Stone Polisher Required: No Beliefs That Will Affect Care: None Current Living Situation: Alone Other Information That Helps Us Care for You: No Feels Safe at Home: Yes Safety Concerns: Feels Safe At This Time Results & Data ([facility]) Vital Signs (Past 12 Hours) Vital Signs Temp Pulse Pulse Resp BP Pulse Ox 06/27/20 11:53 36.5 C 60 18 103/66 98 06/27/20 07:33 36.6 C 73 18 96/60 L 96 06/27/20 03:52 68 18 102/65 97 06/27/20 02:36 63 he is awake alert and oriented x3. HEENT: 2+ carotid upstrokes no evidence of carotid bruits his jugular venous pressure appeared normal his sclerae anicteric Lungs: With a deep breath he immediately coughs. There were no rales rhonchi or wheezing Heart: Irregular rate and rhythm, no appreciable murmurs or rubs, Abdomen: Soft nontender distended positive bowel sounds Extremities: No clubbing cyanosis or edema Psychiatric: His affect appeared appropriate EKG atrial fibrillation with a controlled ventricular response no acute ST-T changes His troponin x1 is negative, his cortisol is normal, TSH is normal as well. CTA of his chest was reviewed there is no evidence of a pleural effusion or heart failure nor pulmonary emboli Impressions: 1. Acute Lyme infection 2. New onset atrial fibrillation which is rate controlled on no AV dante blockers with a chads 2 Vascor of 0 3. Preserved left ventricular systolic function with no evidence of pericardial effusion 4. History of multiple septic episodes approximately 2014 question of autonomic dysfunction leading to chronically low heart rates and blood pressure 5. Chest discomfort with associated shortness of breath and a cough There is nothing to suggest a pulmonary embolism or acute coronary syndrome. Would be unusual to have pericarditis that is better laying flat and worse sitting up. His EKG is not consistent with pericarditis. Although given his symptoms I would give him a trial of colchicine 0.6 mg twice daily and see if this improves his discomfort. When he coughs it is nonproductive. He denies any Reiger's or high-grade fevers. It does sound like he has some degree of autonomic dysfunction I would try Florinef 0.1 mg daily to try to raise his blood pressure and see if this improves the weakness and overall sense feeling poor. With regards to his atrial fibrillation my hope is that he will convert back on his own to sinus rhythm as we treat his Lyme disease. There is nothing to suggest Lyme myocarditis or complete heart block secondary to Lyme disease. If he remains in atrial fibrillation at that point options include DAPHNIE/car dioversion he would need to be anticoagulated prior to the cardioversion and then for a month afterwards. I discussed with him that I would wait to see if he converts back to sinus rhythm for now. All this was discussed with the hospitalist service.
--- NOTE | 2020-06-27 13:01 | Electrocardiogram Report ---
Test Reason : Blood Pressure : / mmHG Vent. Rate : 084 BPM Atrial Rate : 340 BPM P-R Int : 000 ms QRS Dur : 096 ms QT Int : 390 ms P-R-T Axes : 000 059 011 degrees QTc Int : 460 ms Atrial fibrillation Nonspecific T wave abnormality Abnormal ECG When compared with ECG of 20-DEC-2018 16:11, Atrial fibrillation has replaced Sinus rhythm Vent. rate has increased BY 31 BPM Nonspecific T wave abnormality is now present QT has lengthened Confirmed by Bhavesh Staton ([id number]) on 06/27/2020 1:00:38 PM Referred By: Brooks Najera Confirmed By:Bhavesh Statno
[2020-06-27] MEDS: COLCHICINE 0.6 MG TAB PO SCH ×2 (13:19→21:02)
[2020-06-27] MEDS: FLUDROCORTISONE ACETATE 0.1 MG TAB PO SCH (13:20)
--- NOTE | 2020-06-27 14:41 | Hospitalist Progress Note ---
Date of Service June 27, 2020 Assessment & Plan (1) Atrial fibrillation, new onset: Uncertain if new onset atrial fibrillation is secondary to Lyme disease/carditis. While not the typical presentation of lyme carditis, there are some case reports of new onset AF in the setting of Lyme disease. [id number] score = 0. Low risk, 0.2% per year stroke risk. - Echo on 06/27 showed EF 50-55%. - Cardiology consultation appreciated. Recommend: 1) Trial of fludrocortisone 0.1 mg daily to improve BP 2) Trial of colchicine 0.6 mg PO BID for chest pain that is possible pericarditis. 3) Presently will monitor afib. No plan for imminent cardioversion. Will see how his symptoms change with treatment of blood pressure and Lyme. If he continues to have fatigue, palpitations, dyspnea on exertion, might consider DAPHNIE and cardioversion. (2) Lyme disease: As above. - Awaiting results of Western blot confirmatory testing - Ceftriaxone 2gm IV daily, first dose now - Check Anaplasmosis Ab (3) Cough: Patient endorses cough, shortness of breath, and dyspnea on exertion since 09 Jun 2020. He does not appear to be in failure on exam. CXR on admission was unremarkable. Covid-19 was negative. No evidence of infection. - Ddx includes chronic hypotension, Lyme disease, or symptomatic afib. - Plans as above (4) Glaucoma: Chronic. - Continue dorzolamide-timolol, latanoprost - Discussed beta richa eye drop with cardiology - Thought to be non- contributory to HR and fatigue. (5) DVT prophylaxis: SCDs - Low DVT risk per admission calculator Admission and Anticipated Discharge Date Admission Date: June 26, 2020 Subjective Still feeling quite similar to admission. Fatigue, palpitations. Reports no fevers/chills, chest pain, shortness of breath, abdominal pain, nausea, or vomit ing. Physical Exam Constitutional: WD/WN, vitals as above Eyes: EOM intact bilaterally; no conjunctival abnormality ENMT: external ear and nose normal, oropharynx normal Neck: trachea midline, no thyromegaly normal visual inspection Respiratory: normal respiratory effort, lungs clear to auscultation no respiratory distress Cardiovascular: Rate/Rhythm: regular rate and + irregularly irregular Heart Sounds: normal S1 and normal S2 Extremities: no edema Gastrointestinal (Abdomen): Inspection/Auscultation: abdomen normal to inspection; abdomen not distended Musculoskeletal: no cyanosis or clubbing, extremities motor strength 5/5 Skin: no rashes, warm and dry Neurologic: moves all extremities and awake Psychiatric: Orientation: alert, oriented to person and cooperative Results & Data Results & Data ([facility]) Vital Signs (Past 12 Hours) Vital Signs Temp Pulse Resp BP Pulse Ox 06/27/20 11:53 36.5 C 60 18 103/66 98 06/27/20 07:33 36.6 C 73 18 96/60 L 96 06/27/20 03:52 68 18 102/65 97 PG Care Time/CCT Total # of Minutes Spent Total Time Spent with Patient: Total time spent is greater than 50% in coordination of care (as documented) at patient's floor/unit and/or counseling patient: Coding Level of Care Code 21314 Subseq Hosp Care Lvl 3 Diagnoses Atrial fibrillation, new onset I48.91 Lyme disease A69.20 Cough R05 Glaucoma H40.9 Glaucoma type: unspecified Laterality: bilateral DVT prophylaxis Z29.9 (1) Glaucoma Glaucoma type: unspecified Laterality: bilateral Qualified Code(s): H40.9 - Unspecified glaucoma
[2020-06-27] MEDS ORDERED: ALUMINUM/MAGNESIUM/SIMETH (MAALOX MAX) 30 ML UDC PO PRN (18:23)
[2020-06-27] MEDS: cefTRIAXone SODIUM 2,000 MG in DEXTROSE 5% 50 ML IV SCH (21:03)
[2020-06-27] MEDS: LATANOPROST 0.005% OP SOLN 2.5 ML BTL OPB SCH (21:03)
[2020-06-28 06:06] LABS: Hematocrit (blood only) 34.6 % (42-52); Hemoglobin 11.8 g/dL (14.0-18.0); Mean Corpuscular Hemoglobin 32.8 pg (25-34); Mean Corpuscular Hgb Conc 34.1 g/dL (32-36); Mean Corpuscular Volume 96.1 fL (80-100); Mean Platelet Volume 9.8 fL (7.4-10.4); Platelet Count 216 K/uL (130-400); RDW Coefficient of Variation 13.5 % (11.5-14.5); RDW Standard Deviation 47.1 fL (36.4-46.3); White Blood Count 4.16 K/uL (4.8-10.8)
[2020-06-28 06:37] LABS: BUN Creatinine Ratio 20.8 (10-20); Blood Urea Nitrogen 14 mg/dl (7-18); Calcium 8.4 mg/dl (8.5-10.1); Carbon Dioxide 24 mmol/L (21-32); Chloride 109 mmol/L (98-107); Est GFR (African American) 120.2; Est GFR (Non-African American) 103.7; Glucose 97 mg/dl (70-99); Magnesium 2.1 mg/dl (1.8-2.4); Potassium 3.8 mmol/L (3.5-5.1); Sodium 139 mmol/L (136-145)
[2020-06-28 06:42] LABS: NT Pro B Type Natriuretic Pept 1697 pg/ml (0-900); Troponin I < 0.015 ng/ml (0-0.045)
[2020-06-28] MEDS: DORZOLAMIDE/TIMOLOL 22.3/6.8MG/ML 10 ML BTL OPB SCH ×2 (08:32→21:22)
[2020-06-28] MEDS: CHOLECALCIFEROL 1,000 UNITS 25 MCG TAB PO SCH (08:33)
[2020-06-28] MEDS: MULTIVITAMIN TAB PO SCH (08:33)
[2020-06-28] MEDS: COLCHICINE 0.6 MG TAB PO SCH ×2 (08:33→21:21)
[2020-06-28] MEDS: FLUDROCORTISONE ACETATE 0.1 MG TAB PO SCH (08:33)
--- NOTE | 2020-06-28 10:23 | Electrocardiogram Report ---
Test Reason : Blood Pressure : / mmHG Vent. Rate : 054 BPM Atrial Rate : 048 BPM P-R Int : 000 ms QRS Dur : 096 ms QT Int : 454 ms P-R-T Axes : 000 076 049 degrees QTc Int : 430 ms Atrial fibrillation with slow ventricular response Nonspecific T wave abnormality Abnormal ECG When compared with ECG of 26-JUN-2020 16:24, Vent. rate has decreased BY 30 BPM No significant change was found Confirmed by Bhavesh Staton ([id number]) on 06/28/2020 10:22:52 AM Referred By: Brooks Najera Confirmed By:Bhavesh Staton
--- NOTE | 2020-06-28 11:47 | Cardiology Progress Note ---
Date of Service June 28, 2020 Assessment & Plan Admission and Anticipated Discharge Date Admission Date: June 26, 2020 Subjective He notes he can take a slightly deeper breath but still feels like he has some degree of chest tightness. He denies any lightheadedness or dizziness. He notes he was woken last night and was felt like his heart was racing. He feels good the monitor at the same time he was in atrial fibrillation with a controlled ventricular response he has had up to 3-second pauses. There were no accelerated episodes of atrial arrhythmias at the time. The fluttering in his chest is improved but is still present. He still has shortness of breath with activity. He denies any presyncope or syncope. He has had falls at home but none here in the hospital. He thinks that his chest tightness is slightly better potentially with colchicine it also appears to be helping with some of his constipation. Results & Data ([facility]) Vital Signs (Past 12 Hours) Vital Signs Temp Pulse Pulse Resp BP BP Pulse Ox 06/28/20 11:09 36.6 C 60 18 95/61 L 97 06/28/20 07:02 36.6 C 65 18 96/56 L 97 06/28/20 04:51 36.6 C 61 20 91/57 L 94 06/28/20 01:38 54 L 86/54 L 06/27/20 23:59 57 L 06/27/20 23:50 36.7 C 70 20 85/53 L 99 he is awake alert and oriented x3. HEENT: 2+ carotid upstrokes no evidence of carotid bruits his jugular venous pressure appeared normal his sclerae anicteric Lungs: With a deep breath he immediately coughs. There were no rales rhonchi or wheezing Heart: Irregular rate and rhythm, no appreciable murmurs or rubs, Abdomen: Soft nontender distended positive bowel sounds Extremities: No clubbing cyanosis or edema Psychiatric: His affect appeared appropriate EKG atrial fibrillation with a controlled ventricular response no acute ST-T changes His troponin x1 is negative, his cortisol is normal, TSH is normal as well. CTA of his chest was reviewed there is no evidence of a pleural effusion or heart failure nor pulmonary emboli Impressions: 1. Acute Lyme infection 2. New onset atrial fibrillation which is rate controlled on no AV dante blo ckers with a chads 2 Vascor of 0 3. Preserved left ventricular systolic function with no evidence of pericardial effusion 4. History of multiple septic episodes approximately 2014 question of autonomic dysfunction leading to chronically low heart rates and blood pressure 5. Chest discomfort with associated shortness of breath and a cough 6. Autonomic dysfunction His BNP is elevated. I do wonder if this is not related to atrial fibrillation. He is symptomatic with his A. fib as he feels palpitations and I think his shortness of breath is also related to his A. fib. I will asked Dr. Andrade of electrophysiology tomorrow to see him. The challenge is he is relatively bradycardic on no AV dante blockers and already having up to 3-second pauses. He is also had a history of bradycardia in the past and there is a risk with cardioversion that he would be excessively bradycardic. Given the duration of his atrial fibrillation he would need a transesophageal echocardiogram with his cardioversion and then at a minimum of 4 weeks of anticoagulation. Given his elevated BNP I will stop his Florinef to help with raise his blood pressure. We will start midodrine 2-1/2 mg 3 times daily. The question is whether he would benefit from a small dose of oral Lasix 20 mg. It is possible if we diurese him slightly as his weight is up about 5 pounds according to him that his chest tightness is actually related to mild heart failure. On the other side if you look at his chest x-ray and his CT of his chest there is no evidence of pleural effusions nor suggestion of heart failure. At this point I will hold off. He will remain on colchicine. I will discuss his case with Dr. Andrade tomorrow.
[2020-06-28] MEDS: MIDODRINE HCL 2.5 MG TAB PO SCH ×2 (12:18→17:06)
[2020-06-28] MEDS: LATANOPROST 0.005% OP SOLN 2.5 ML BTL OPB SCH (21:20)
[2020-06-28] MEDS: cefTRIAXone SODIUM 2,000 MG in DEXTROSE 5% 50 ML IV SCH (21:22)
--- NOTE | 2020-06-28 22:07 | Hospitalist Progress Note ---
Date of Service June 28, 2020 Assessment & Plan (1) Atrial fibrillation, new onset: Uncertain if new onset atrial fibrillation is secondary to Lyme disease/carditis. While not the typical presentation of lyme carditis, there are some case reports of new onset AF in the setting of Lyme disease. AOHCZ-2-Plrz score = 0. Low risk, 0.2% per year stroke risk. - Echo on 06/27 showed EF 50-55%. - Cardiology consultation appreciated. Recommend: 1) Will hold of fludrocortisone, due to possible concern of heart failure, and start midodrine, will need to monitor as patient has glaucoma. 2) Trial of colchicine 0.6 mg PO BID for chest pain that is possible pericardit is. 3) Presently will monitor afib. No plan for imminent cardioversion. Will see how his symptoms change with treatment of blood pressure and Lyme. If he continues to have fatigue, palpitations, dyspnea on exertion, might consider DAPHNIE and cardioversion. (2) Lyme disease: As above. - Awaiting results of Western blot confirmatory testing - Ceftriaxone 2gm IV daily - Check Anaplasmosis Ab (3) Cough: Patient endorses cough, shortness of breath, and dyspnea on exertion since 09 Jun 2020. He does not appear to be in failure on exam. CXR on admission was unremarkable. Covid-19 was negative. No evidence of infection. - Ddx includes chronic hypotension, Lyme disease, or symptomatic afib. - Plans as above (4) Glaucoma: Chronic. - Continue dorzolamide-timolol, latanoprost - Discussed beta richa eye drop with cardiology - Thought to be non- contributory to HR and fatigue. (5) DVT prophylaxis: SCDs - Low DVT risk per admission calculator Admission and Anticipated Discharge Date Admission Date: June 26, 2020 Subjective 59 yo male reports feeling better. He no longer feels chest palpitations as he did the day before. Review of Systems Review of Systems: All systems reviewed & are unremarkable except as noted in HPI & below Physical Exam Physical Exam: Constitutional: WD/WN, vitals as above Eyes: EOM intact bilaterally; no conjunctival abnormality ENMT: external ear and nose normal, oropharynx normal Neck: trachea midline, no thyromegaly normal visual inspection Respiratory: normal respiratory effort, lungs clear to auscultation no re spiratory distress Cardiovascular: Rate/Rhythm: regular rate and + irregularly irregular Heart Sounds: normal S1 and normal S2 Extremities: no edema Gastrointestinal (Abdomen): Inspection/Auscultation: abdomen normal to inspection; abdomen not distended Musculoskeletal: no cyanosis or clubbing, extremities motor strength 5/5 Skin: no rashes, warm and dry Neurologic: moves all extremities and awake Psychiatric: Orientation: alert, oriented to person and cooperative Results & Data Results & Data ([facility]) Vital Signs (Past 12 Hours) Vital Signs Temp Pulse Pulse Resp BP BP Pulse Ox 06/28/20 18:59 36.7 C 58 L 19 103/68 96 06/28/20 16:00 59 L 06/28/20 14:51 36.7 C 84 18 97/60 L 97 06/28/20 11:09 36.6 C 60 18 95/61 L 97 PG Care Time/CCT Total # of Minutes Spent Total Time Spent with Patient: Total time spent is greater than 50% in coordination of care (as documented) at patient's floor/unit and/or counseling patient: Coding Level of Care Code 29516 Subseq Hosp Care Lvl 3 Diagnoses Atrial fibrillation, new onset I48.91 Lyme disease A69.20 Cough R05 Glaucoma H40.9 Glaucoma type: unspecified Laterality: bilateral DVT prophylaxis Z29.9 Time Spent (min) 35 (1) Glaucoma Glaucoma type: unspecified Laterality: bilateral Qualified Code(s): H40.9 - Unspecified glaucoma
[2020-06-29] MEDS: CHOLECALCIFEROL 1,000 UNITS 25 MCG TAB PO SCH (08:41)
[2020-06-29] MEDS: COLCHICINE 0.6 MG TAB PO SCH ×2 (08:41→20:59)
[2020-06-29] MEDS: MIDODRINE HCL 2.5 MG TAB PO SCH ×3 (08:41→16:27)
[2020-06-29] MEDS: MULTIVITAMIN TAB PO SCH (08:41)
[2020-06-29] MEDS: DORZOLAMIDE/TIMOLOL 22.3/6.8MG/ML 10 ML BTL OPB SCH ×2 (08:42→20:59)
--- NOTE | 2020-06-29 14:37 | Cardiology Consultation ---
Date of Consultation June 29, 2020 Assessment & Plan (1) Atrial fibrillation, new onset: The patient presented with atrial fibrillation and some symptoms of palpitation. the overall duration of atrial fibrillation is unknown. It is unclear if it is related to his current illness. This is also unclear if treatment of his infection will result in a return to sinus rhythm. His overall rate control is adequate and in fact at times he has had some slow heart rates. Did have some periods of ventricular asystole in the speech therapist early intervention hours lasting up to 3 seconds in duration. I think this suggests an element of AV node dysfunction possibly related to his Lyme disease. I think we should wait for adequate treatment of his Lyme disease and possibly resolution of any underlying conduction disease before considering cardioversion. Given his young age and the fact that this is 1st episode of atrial fibrillation would seem reasonable to attempt a return to sinus rhythm if he does not do so spontaneously. This was certainly require a transesophageal echocardiogram 1st and then cardioversion. He does not appear to have an independent indication for anticoagulation as his chads Vasc score is quite low. Another option is simply monitor him in atrial fibrillation and not returning to sinus rhythm. Currently does not appear to have overt symptoms related to the arrhythmia. I think we will simply monitor him in the hospital setting while he gets treated for Lyme disease. We can make a determination on any timing of cardioversion prior to discharge. History of Present Illness Reason for Consultation: Atrial fibrillation Requesting Physician: Brionna Attending Physician: Yonathan Camarillo History of Present Illness the patient is a 59-year-old gentleman without a known history of cardiac disease who [facility] or some diffuse symptoms are including weakness, joint discomfort, activity intolerance, subjective fevers , persistent nonproductive cough and a "fluttering". Patient states that he had a sensation of "fluttering". For few days leading up to his admission. He was eventually discovered to have atrial fibrillation. He believes he may have converted atrial fibrillation after suffering a fall in January. This is not appear to be based on any specific symptoms other than his concern over I fall possibly initiating the arrhythmia. He was seen for a minor injury to his left arm and cervical radiculopathy subsequent to the fall. No mention was made at that time at of irregularity in his heartbeat or atrial fibrillation. At the time of admission he was discovered to have Lyme disease. Western blot confirmation is pending. He was started on empiric treatment. he has received 2 days of ceftriaxone states that overall he feels better. He states that his fatigue is improved in his frequent coughing is also improved. He no longer notices "fluttering". In general he appears to be a very sedentary individual who is limited overall by stamina and energy. 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 He is able to ambulate short distances and for short time frames. He appears to have some memory issues and is nearly always accompanied by an Advocate. Some supplemental history was provided by the advocate today. Allergies Allergy/AdvReac Type Severity Reaction Status Date / Time walnut Allergy Severe THROAT Verified 06/26/20 17:13 SWELLS ciprofloxacin Allergy Mild RASH Verified 06/26/20 17:13 Cipro Allergy Unknown RASH Verified 03/23/18 16:18 Penicillins Allergy Unknown UNKNOWN Verified 06/26/20 17:13 hydrocodone AdvReac Intermediate DIZZY Verified 06/26/20 17:14 oxycodone AdvReac Intermediate dizzy Verified 06/26/20 17:14 spells sulfamethoxazole AdvReac Intermediate DIZZY Verified 06/26/20 17:14 terazosin AdvReac Intermediate wicked Verified 06/26/20 17:15 dizzy tramadol AdvReac Intermediate "WAY OUT Verified 06/26/20 17:15 IN OUTER SPACE" trimethoprim AdvReac Intermediate DIZZY Verified 06/26/20 17:15 Bactrim AdvReac Unknown DIZZY Verified 03/23/18 16:18 Home Medications Home Medications Medication Instructions Recorded Confirmed Type dorzolamide-timolol 1 drp OPB BID 08/03/18 06/26/20 History latanoprost 1 drp OPB HS 08/03/18 06/26/20 History cholecalciferol (vitamin D3) 2,000 unit PO DAILY 08/07/19 06/26/20 History [Vitamin D3] multivitamin 1 tab PO DAILY 08/07/19 06/26/20 History Patient History Medical History (Updated 06/28/20 @ 22:52 by Mishel Hernandez DO) Diverticulitis Glaucoma Lyme disease Precordial chest pain Rib fractures Right flank pain Right ureteral stone Septic shock UTI (urinary tract infection) Surgical History History of bladder surgery Hx of fasciotomy Family History Other Adopted Social History Smoking Status: Never smoker Hx Alcohol Use: No Hx Substance Use: No Preferred Language: Irish Communication Ability: Effective 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 He also had some concerns regarding the use of that medication and development of visual symptoms he associates with glaucoma. Physical Exam Physical Exam: The patient is alert and oriented. Mood and affect appeared normal. He answered all questions appropriately. He occasionally referred to his advocate for answers. HEENT: Pupils are equal and reactive to light and accommodation. Extraocular movements are intact. The sclerae are anicteric. Neuro: Cranial nerves intact Neck: Patient's neck is supple. He has palpable carotid pulses bilaterally without bruits on auscultation. There is no evidence of jugular venous distention. The thyroid is not enlarged. Lungs: Clear to auscultation bilaterally. He has good air movement without use of accessory muscles. No rales wheezes or rhonchi. Cardiac: Heart demonstrates an irregular rate and rhythm. Normal S1 and S2. No murmurs on examination. Pulses: The patient has palpable radial pulses bilaterally that are equal in intensity Extremities: There was no evidence of hypoperfusion. There is no cyanosis or clubbing. There is no edema. Skin: I did not appreciate any rashes on examination today. Results & Data ([facility]) Vital Signs (Past 12 Hours) Vital Signs Temp Pulse Pulse Resp BP BP Pulse Ox 06/29/20 12:55 50 L 20 96/67 L 06/29/20 11:22 36.5 C 67 20 122/74 99 06/29/20 09:00 44 L 06/29/20 07:44 36.4 C L 62 18 90/55 L 98 06/29/20 04:10 36.4 C L 52 L 20 125/81 70/51 L 94 Diagnostic Findings Echocardiogram was obtained 06/27/2020: LV function was normal with ejection fraction of 50-55%. Dilation of the right ventricle. I reviewed the source image of his EKG obtained 06/28/2020: Atrial fibrillation with controlled ventricular response. PG Care Time/CCT Total # of Minutes Spent Total Time Spent with Patient: Total time spent is greater than 50% in coordination of care (as documented) at patient's floor/unit and/or counseling patient: Coding Level of Care Code 26594 Inpt Consult Level 4 Diagnoses Atrial fibrillation, new onset I48.91
[2020-06-29] MEDS: LATANOPROST 0.005% OP SOLN 2.5 ML BTL OPB SCH (20:59)
[2020-06-29] MEDS: cefTRIAXone SODIUM 2,000 MG in DEXTROSE 5% 50 ML IV SCH (21:00)
--- NOTE | 2020-06-29 22:13 | Hospitalist Progress Note ---
Date of Service June 29, 2020 Assessment & Plan (1) Atrial fibrillation, new onset: Uncertain if new onset atrial fibrillation is secondary to Lyme disease/carditis. While not the typical presentation of lyme carditis, there are some case reports of new onset AF in the setting of Lyme disease. [id number] score = 0. Low risk, 0.2% per year stroke risk. - Echo on 06/27 showed EF 50-55%. - Cardiology consultation appreciated. Recommend: 1) Will hold of fludrocortisone, due to possible concern of heart failure, and start midodrine, will need to monitor as patient has glaucoma. 2) Trial of colchicine 0.6 mg PO BID for chest pain that is possible pericardit is. 3) Presently will monitor afib. No plan for imminent cardioversion. Will see how his symptoms change with treatment of blood pressure and Lyme. If he continues to have fatigue, palpitations, dyspnea on exertion, might consider DAPHNIE and cardioversion. Patient today however refused midodrine due to history of glaucoma. I explained to him that he likely has open angle glaucoma, he can verify this with the PCP. Midodrine is contraindicated in Closed angle glaucoma in the [place] guidelines (2) Lyme disease: As above. - Awaiting results of Western blot confirmatory testing - Ceftriaxone 2gm IV daily - Check Anaplasmosis Ab Had long discussion about antibiotics and bioavailability. (3) Acute chest pain: will discuss with cardio, if he needs to have this evaluated. This appears to be a chronic issue, (4) Hypotension: Patient appears to have chronic hypotension. Unsure as the cause, and he has not been worked up in the outpatient setting as per the patient. His BP though has been better despite holding midodrine, will continue to monitor. (5) Glaucoma: Chronic. - Continue dorzolamide-timolol, latanoprost - Discussed beta richa eye drop with cardiology - Thought to be non- contributory to HR and fatigue. (6) Cough: Patient endorses cough, shortness of breath, and dyspnea on exertion since 09 Jun 2020. He does not appear to be in failure on exam. CXR on admission was unremarkable. Covid-19 was negative. No evidence of infection. - Ddx includes chronic hypotension, Lyme disease, or symptomatic afib. - Plans as above (7) DVT prophylaxis: SCDs - Low DVT risk per admission calculator Admission and Anticipated Discharge Date Admission Date: June 26, 2020 Subjective 59 yo male who is concerned over having multiple symptoms today. 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 His symptoms included short lived episodes: of chest heaviness and left sided arm numbness. He also reports episodes of palpitations. Patient reports he is very detailed oriented, Review of Systems Review of Systems: All systems reviewed & are unremarkable except as noted in HPI & below Physical Exam Physical Exam: Constitutional: WD/WN, vitals as above Eyes: EOM intact bilaterally; no conjunctival abnormality ENMT: external ear and nose normal, oropharynx normal Neck: trachea midline, no thyromegaly normal visual inspection Respiratory: normal respiratory effort, lungs clear to auscultation no respiratory distress Cardiovascular: Rate/Rhythm: regular rate and + irregularly irregular Heart Sounds: normal S1 and normal S2 Extremities: no edema Gastrointestinal (Abdomen): Inspection/Auscultation: abdomen normal to inspection; abdomen not distended Musculoskeletal: no cyanosis or clubbing, extremities motor strength 5/5 Skin: no rashes, warm and dry Neurologic: moves all extremities and awake Psychiatric: Orientation: alert, oriented to person and cooperative Results & Data Results & Data ([facility]) Vital Signs (Past 12 Hours) Vital Signs Temp Pulse Pulse Resp BP BP Pulse Ox 06/29/20 18:58 36.8 C 62 18 109/67 96 06/29/20 16:00 61 06/29/20 15:51 36.8 C 66 18 92/60 L 95 06/29/20 15:31 61 06/29/20 12:55 50 L 20 96/67 L 06/29/20 11:22 36.5 C 67 20 122/74 99 PG Care Time/CCT Total # of Minutes Spent Total Time Spent: 65 Total Time Spent with Patient: Total time spent is greater than 50% in coordination of care (as documented) at patient's floor/unit and/or counseling patient: Prolonged Care Time Prolonged Care Time: Yes Total Prolonged Care Time: 65 spent from 19:00 to 20:05 Coding Level of Care Code 39171 Subseq Hosp Care Lvl 3 Diagnoses Atrial fibrillation, new onset I48.91 Lyme disease A69.20 Acute chest pain R07.9 Hypotension I95.9 Glaucoma H40.9 Glaucoma type: unspecified Laterality: bilateral Cough R05 DVT prophylaxis Z29.9 Additional Codes Prolonged Care Time - Prolonged Care Time: Yes ([id number]) (1) Glaucoma Glaucoma type: unspecified Laterality: bilateral Qualified Code(s): H40.9 - Unspecified glaucoma
[2020-06-30] MEDS: MULTIVITAMIN TAB PO SCH (08:54)
[2020-06-30] MEDS: MIDODRINE HCL 2.5 MG TAB PO SCH (08:54)
[2020-06-30] MEDS: CHOLECALCIFEROL 1,000 UNITS 25 MCG TAB PO SCH (08:54)
[2020-06-30] MEDS: COLCHICINE 0.6 MG TAB PO SCH (08:54)
[2020-06-30] MEDS: DORZOLAMIDE/TIMOLOL 22.3/6.8MG/ML 10 ML BTL OPB SCH ×2 (08:55→21:38)
--- NOTE | 2020-06-30 09:54 | Cardiology Progress Note ---
Date of Service June 30, 2020 Assessment & Plan (1) Atrial fibrillation, new onset: The patient presented with atrial fibrillation and some symptoms of palpitation. under believe his any pressing indication for returned to sinus rhythm although it is very likely that some of his symptoms were related to a transition to atrial fibrillation. My current recommendation would be to start anticoagulation in anticipation of elective cardioversion. I think we can monitor him for 3 weeks as an outpatient. If he has not returned to sinus rhythm at that point we can consider outpatient cardioversion. This would also allow for treatment of his underlying infectious process which may result in improvement in his overall heart rate. His renal function is normal and he would be a good candidate for any of the novel anticoagulants. For simplicity purposes he could certainly take Xarelto 20 milligrams daily. (2) Hypotension: I think we can discontinue his admitted drain. He did not feel well and has been refusing medication. He seemed to feel better on fludrocortisone. I think this could be restarted primarily to monitor his clinical effect. Admission and Anticipated Discharge Date Admission Date: June 26, 2020 Subjective This morning the patient reported an episode of dizziness last evening. This occurred while he was in bed. He is ambulatory around the room with a few symptoms. He continues to complain of intermittent symptoms of chest pressure. He describes this as if a small individual or light weight were sitting on his chest. He has difficulty taking a full breath when this occurs. He reported having a prolonged episode yesterday evening. No sense of palpitation. Some coughing with ambulation last evening but generally not at rest. Review of Systems Review of Systems: per HPI Physical Exam Physical Exam: The patient is alert and oriented. Mood and affect appeared normal. He answered all questions appropriately. He occasionally referred to his advocate for answers. HEENT: Pupils are equal and reactive to light and accommodation. Extraocular movements are intact. The sclerae are anicteric. Neuro: Cranial nerves intact Neck: Patient's neck is supple. He has palpable carotid pulses bilaterally without bruits on auscultation. There is no evidence of jugular venous distention. The thyroid is not enlarged. Lungs: Clear to auscultation bilaterally. He has good air movement without use of accessory muscles. No rales wheezes or rhonchi. Cardiac: Heart demonstrates an irregular rate and rhythm. Normal S1 and S2. No murmurs on examination. Pulses: The patient has palpable radial pulses bilaterally that are equal in intensity Extremities: There was no evidence of hypoperfusion. There is no cyanosis or clubbing. There is no edema. Skin: I did not appreciate any rashes on examination today. Results & Data ([facility]) Vital Signs (Past 12 Hours) Vital Signs Temp Pulse Resp BP Pulse Ox 06/30/20 06:56 36.4 C L 58 L 18 103/70 93 06/30/20 03:24 36.4 C L 58 L 18 88/52 L 96 06/29/20 22:56 36.6 C 60 16 94/56 L 94 PG Care Time/CCT Total # of Minutes Spent Total Time Spent with Patient: Total time spent is greater than 50% in coordination of care (as documented) at patient's floor/unit and/or counseling patient: Coding Level of Care Code 01915 Subseq Hosp Care Lvl 3 Diagnoses Atrial fibrillation, new onset I48.91 Hypotension I95.9
[2020-06-30] MEDS: FLUDROCORTISONE ACETATE 0.1 MG TAB PO SCH (13:07)
[2020-06-30 13:26] LABS: 18KDIGG Band REACTIVE; 23KDIGG Band REACTIVE; 23KDIGM Band REACTIVE; 28KDIGG Band NON-REACTIVE; 30KDIGG Band NON-REACTIVE; 39KDIGG Band REACTIVE; 39KDIGM Band NON-REACTIVE; 41KDIGG Band REACTIVE; 41KDIGM Band NON-REACTIVE; 45KDIGG Band NON-REACTIVE; 58KDIGG Band REACTIVE; 66KDIGG Band NON-REACTIVE; 93KDIGG Band NON-REACTIVE; Lyme Antibodies, WB IgG POSITIVE (NEGATIVE); Lyme Antibodies, WB IgM NEGATIVE (NEGATIVE)
[2020-06-30] MEDS: cefTRIAXone SODIUM 2,000 MG in DEXTROSE 5% 50 ML IV SCH (21:34)
[2020-06-30] MEDS: LATANOPROST 0.005% OP SOLN 2.5 ML BTL OPB SCH (21:39)
--- NOTE | 2020-06-30 22:05 | Hospitalist Progress Note ---
Date of Service June 30, 2020 Assessment & Plan (1) Atrial fibrillation, new onset: likely due to acute Lyme disease causing Lyme carditis [id number] score = 0. Low risk, 0.2% per year stroke risk. - Echo on 06/27 showed EF 50-55%. plan to treat Lyme disease with Rocephin 2gm IV daily x 30 days total will anticoagulate with Xarelto 20mg daily will follow up with Dr. Andrade in 3 weeks, if still in afib then plan for cardioversion (2) Lyme disease: IgG and IgM positive on screen - Awaiting results of Western blot confirmatory testing - Ceftriaxone 2gm IV daily plan for peripheral guided IV, 30 days total treatment - Check Anaplasmosis Ab but doubt infection, platelets and LFT normal could also have a degree of neuro involvement as he has some peristhesias however, no nerve palsy on exam (3) Glaucoma: Chronic. - Continue dorzolamide-timolol, latanoprost - Discussed beta richa eye drop with cardiology - Thought to be non- contributory to HR and fatigue. (4) Cough: Patient endorses cough, shortness of breath, and dyspnea on exertion since 09 Jun 2020. He does not appear to be in failure on exam. CXR on admission was unremarkable. Covid-19 was negative. No evidence of infection. - Ddx includes chronic hypotension, Lyme disease, or symptomatic afib. - Plans as above (5) DVT prophylaxis: SCDs - Low DVT risk per admission calculator (6) Hypotension: chronic issue but with BP in 70's systolic earlier in stay tried Midodrine TID but patient did not tolerate well will stop Midodrine, use Florinef 0.1mg daily, he says he feels better today monitor BP tomorrow Admission and Anticipated Discharge Date Admission Date: June 26, 2020 Subjective patient feeling better overall today ambulated to the bathroom, no light headed ness he will have some palpitations from time to time, HR was checked on monitor and it was in the 80-[address] Andrade, appreciate his input plan for Rocephin to treat Lyme carditis, follow up with cardiology in three weeks if still in afib will consider cardioversion he recommends Xarelto long discussion with patient about his past history, he provided a lot of details discussed plan with patient and his advocate Milla, all questions answered will keep him here tomorrow to [facility], Rocephin on discharge spoke with supportive employment case manager about the plan, they are aware of plan for outpatient IV antibiotics reviewed chart reviewed labs, Lyme western blot still pending Review of Systems Review of Systems: All systems reviewed & are unremarkable except as noted in Subjective Constitutional: + fatigue and + weakness; no fever, no chills and no sweats Respiratory: no cough and no dyspnea Cardiovascular: + palpitations; no chest pain, no syncope and no edema Gastrointestinal: no abdominal pain, no nausea, no vomiting, no constipation and no diarrhea/loose stools Physical Exam Constitutional: WD/WN, vitals as above Eyes: PERRL, conjunctivae normal, anicteric sclerae ENMT: external ear and nose normal, oropharynx normal Neck: trachea midline, no thyromegaly Respiratory: normal respiratory effort, lungs clear to auscultation Cardiovascular: Rate/Rhythm: regular rate and + irregularly irregular Heart Sounds: normal S1 and normal S2; no murmur Vessels: no JVD Extremities: normal capillary refill; no edema Gastrointestinal (Abdomen): normal bowel sounds, soft, nontender, no hepatosplenomegaly Musculoskeletal: no cyanosis or clubbing, extremities motor strength 5/5 Skin: no rashes, warm and dry Neurologic: patellar DTR's 2+ bilat, sensation intact and PERRL, EOMI, accommodation nl, no face palsy, no dysarthria Psychiatric: Orientation: alert and oriented x 3 Affect: + anxious affect Mood: + anxious mood Lymphatic: no cervical or axillary lymphadenopathy Results & Data Results & Data ([facility]) Vital Signs (Past 12 Hours) Vital Signs Temp Pulse Pulse Resp BP Pulse Ox 06/30/20 19:00 36.4 C L 76 20 100/65 96 06/30/20 16:00 71 06/30/20 15:35 36.3 C L 66 18 109/71 97 06/30/20 11:18 36.6 C 91 H 20 104/67 90 Medications Administered Current Inpatient Medications Acetaminophen (Acetaminophen 325 Mg Tab) 650 mg PO Q4H PRN PRN Reason: pain/fever Stop: 07/26/20 21:39 Al Hydrox/Mg Hydrox/Simethicone (Aluminum/Magnesium/Simeth (Maalox Max) 30 Ml Udc) 30 ml PO Q6H PRN PRN Reason: Dyspepsia Stop: 07/27/20 18:22 Dorzolamide/Timolol (Dorzolamide/Timolol 22.3/6.8mg/Ml 10 Ml Btl) 1 drops OPB BID [facility] Stop: 07/26/20 21:39 Last Admin: 06/30/20 21:38 Dose: 1 drops Documented by: Fludrocortisone Acetate (Fludrocortisone Acetate 0.1 Mg Tab) 0.1 mg PO QAM [facility] Stop: 07/30/20 09:59 Last Admin: 06/30/20 13:07 Dose: 0.1 mg Documented by: Ceftriaxone Sodium 2,000 mg/ (Dextrose) 70 mls @ 100 mls/hr IV DAILY@2200 LINDA; Protocol Stop: 07/06/20 21:59 Last Admin: 06/30/20 21:34 Dose: 100 mls/hr Documented by: Latanoprost (Latanoprost 0.005% Op Soln 2.5 Ml Btl) 1 drops OPB HS [facility] Stop: 07/26/20 21:39 Last Admin: 06/30/20 21:39 Dose: 1 drops Documented by: Multivitamins (Multivitamin Tab) 1 tab PO [facility] Stop: 07/27/20 08:59 Last Admin: 06/30/20 08:54 Dose: 1 tab Documented by: Vitamin D (Cholecalciferol 1,000 Units 25 Mcg Tab) [facility] [place] Stop: 07/27/20 08:59 Last Admin: 06/30/20 08:54 Dose: 2,000 units Documented by: PG Care Time/CCT Total # of Minutes Spent Total Time Spent: 70 Total Time Spent with Patient: Total time spent is greater than 50% in coordination of care (as documented) at patient's floor/unit and/or counseling patient: total of 50 minutes spent at the bedside first visit with just patient was 40 minutes then second visit with patient and his advocate Milla for 10 minutes [address] Andrade 15 minutes reviewing chart, labs, discussed with Dr. Camarillo who had him yesterday, developing plan Prolonged Care Time Prolonged Care Time: Yes Total Prolonged Care Time: 35 Coding Level of Care Code 45869 Subseq Hosp Care Lvl 3 Diagnoses Atrial fibrillation, new onset I48.91 Lyme disease A69.20 Glaucoma H40.9 Glaucoma type: unspecified Laterality: bilateral Cough R05 DVT prophylaxis Z29.9 Hypotension I95.9 Additional Codes Prolonged Care Time - Prolonged Care Time: Yes ([id number]) (1) Glaucoma Glaucoma type: unspecified Laterality: bilateral Qualified Code(s): H40.9 - Unspecified glaucoma
[2020-07-01] MEDS: DORZOLAMIDE/TIMOLOL 22.3/6.8MG/ML 10 ML BTL OPB SCH ×2 (09:19→20:09)
[2020-07-01] MEDS: CHOLECALCIFEROL 1,000 UNITS 25 MCG TAB PO SCH (09:19)
[2020-07-01] MEDS: MULTIVITAMIN TAB PO SCH (09:19)
[2020-07-01] MEDS: FLUDROCORTISONE ACETATE 0.1 MG TAB PO SCH (09:19)
[2020-07-01 17:16] LABS: Hematocrit (blood only) 42.2 % (42-52); Hemoglobin 14.4 g/dL (14.0-18.0); Mean Corpuscular Hemoglobin 33.4 pg (25-34); Mean Corpuscular Hgb Conc 34.1 g/dL (32-36); Mean Corpuscular Volume 97.9 fL (80-100); Mean Platelet Volume 9.8 fL (7.4-10.4); Platelet Count 299 K/uL (130-400); RDW Coefficient of Variation 13.7 % (11.5-14.5); RDW Standard Deviation 48.6 fL (36.4-46.3); Red Blood Count 4.31 M/uL (4.7-6.1); White Blood Count 6.32 K/uL (4.8-10.8)
[2020-07-01 17:41] LABS: Alanine Aminotransferase 32 U/L (12-78); Albumin Level 3.3 gm/dl (3.4-5.0); Aspartate Aminotransferase 23 U/L (15-37); BUN Creatinine Ratio 17.5 (10-20); Blood Urea Nitrogen 14 mg/dl (7-18); Calcium 8.9 mg/dl (8.5-10.1); Carbon Dioxide 27 mmol/L (21-32); Chloride 107 mmol/L (98-107); Est GFR (African American) 110.6; Est GFR (Non-African American) 95.4; Glucose 90 mg/dl (70-99); Magnesium 2.2 mg/dl (1.8-2.4); Potassium 4.1 mmol/L (3.5-5.1); Sodium 139 mmol/L (136-145)
[2020-07-01 17:43] LABS: Albumin Globulin Ratio 0.8 (0.9-2); Alkaline Phosphatase 99 U/L (45-117); Bilirubin,Total 0.4 mg/dl (0.2-1); Phosphorus 3.3 mg/dl (2.5-4.9); Total Protein 7.3 gm/dl (6.4-8.2)
[2020-07-01] MEDS: LATANOPROST 0.005% OP SOLN 2.5 ML BTL OPB SCH (20:09)
[2020-07-01] MEDS: cefTRIAXone SODIUM 2,000 MG in DEXTROSE 5% 50 ML IV SCH (20:48)
--- NOTE | 2020-07-01 22:42 | Hospitalist Progress Note ---
Date of Service July 01, 2020 Assessment & Plan (1) Atrial fibrillation, new onset: likely due to acute Lyme disease causing Lyme carditis [id number] score = 0. Low risk, 0.2% per year stroke risk. - Echo on 06/27 showed EF 50-55%. plan to treat Lyme disease with Rocephin 2gm IV daily x 30 days total will anticoagulate with Xarelto 20mg daily until he follows up with cardiology will follow up with Dr. Andrade in 3 weeks, if still in afib then plan for cardioversion rates in 60-80's today without rate control medications (2) Lyme disease: IgG and IgM positive on screen - Awaiting results of Western blot - one band of IgM and several bands for IgG - Ceftriaxone 2gm IV daily plan for peripheral guided IV, 30 days total treatment - Check Anaplasmosis Ab but doubt infection, platelets and LFT normal anaplasmosis is NEGATIVE (3) Glaucoma: Chronic. - Continue dorzolamide-timolol, latanoprost - Discussed beta richa eye drop with cardiology - Thought to be non- contributory to HR and fatigue. (4) Cough: Patient endorses cough, shortness of breath, and dyspnea on exertion since 09 Jun 2020. He does not appear to be in failure on exam. CXR on admission was unremarkable. Covid-19 was negative. No evidence of infection. - Ddx includes chronic hypotension, Lyme disease, or symptomatic afib. - Plans as above (5) DVT prophylaxis: SCDs - Low DVT risk per admission calculator (6) Hypotension: chronic issue but with BP in 70's systolic earlier in stay tried Midodrine TID but patient did not tolerate well tried Florinef but now he is c/o constellation of side effects, wants to stop checked labs, CBC, CMP, mag, phos all normal will hold Florinef, he wants to try Midodrine again tomorrow now that he has no concerns with his glaucoma try tomorrow BP in 90's systolic all day today, no readings in the 80's Admission and Anticipated Discharge Date Admission Date: June 26, 2020 Subjective patient with constellation of symptoms that he is attributing to Florinef he says he is clammy, making a lot of urine, has ulcer on his tongue, he broke out in hives on his back last night he is concerned because his systolic pressures have all been in the 90's today but he has not had light headedness or falls, he is walking in the room independently discussed that the anaplasmosis was negative Lyme western blot with IgM one band, IgG several bands checked CBC, CMP, mag and phos, all labs normal this afternoon US guided IV placed today called his pharmacy, [facility] has $0 copay long discussion with patient and his advocate Milla at the bedside discussed discharge plans he does not want the Florinef, wants to try Midodrine again now that he has no concerns about glaucoma will try Midodrine tomorrow at low dose reviewed tele, in afib with rates 60-80's Review of Systems Review of Systems: All systems reviewed & are unremarkable except as noted in Subjective Physical Exam Constitutional: WD/WN, vitals as above Eyes: PERRL, conjunctivae normal, anicteric sclerae ENMT: external ear and nose normal, oropharynx normal Neck: trachea midline, no thyromegaly Respiratory: normal respiratory effort, lungs clear to auscultation Cardiovascular: Rate/Rhythm: regular rate and + irregularly irregular Heart Sounds: normal S1 and normal S2; no murmur Vessels: no JVD Extremities: normal capillary refill; no edema Gastrointestinal (Abdomen): normal bowel sounds, soft, nontender, no hepatosplenomegaly Musculoskeletal: no cyanosis or clubbing, extremities motor strength 5/5 Skin: no rashes, warm and dry Neurologic: patellar DTR's 2+ bilat, sensation intact and PERRL, EOMI, accommodation nl, no face palsy, no dysarthria Psychiatric: Orientation: alert and oriented x 3 Affect: + anxious affect Mood: + anxious mood Lymphatic: no cervical or axillary lymphadenopathy Results & Data Results & Data ([facility]) Vital Signs (Past 12 Hours) Vital Signs Temp Pulse Pulse Resp BP Pulse Ox 07/01/20 19:22 36.7 C 65 18 99/59 L 96 07/01/20 15:39 36.5 C 66 18 95/50 L 95 07/01/20 15:10 64 07/01/20 13:08 36.5 C 73 16 91/54 L 07/01/20 11:14 36.6 C 78 18 109/71 97 Laboratory Results Laboratory Results - last 24 hr 08/07/01/20 07/01/20 16:30 16:44 16:44 WBC 6.32 RBC 4.31 L Hgb 14.4 Hct 42.2 MCV 97.9 MCH 33.4 MCHC 34.1 RDW Std Deviation 48.6 H RDW Coeff of Jamaal 13.7 Plt Count 299 MPV 9.8 Sodium 139 Potassium 4.1 Chloride 107 Carbon Dioxide 27 Anion Gap 5.0 BUN 14 Creatinine 0.82 Est Cr Clr Drug Dosing Not Reportable Est GFR ( Amer) 110.6 Est GFR (Non-Af Amer) 95.4 BUN/Creatinine Ratio 17.5 Glucose 90 Calcium 8.9 Phosphorus 3.3 Magnesium 2.2 Total Bilirubin 0.4 AST 23 ALT 32 Alkaline Phosphatase 99 Total Protein 7.3 Albumin 3.3 L Globulin 4.0 Albumin/Globulin Ratio 0.8 L A. phagocytophilum DNA Not Detected Medications Administered Current Inpatient Medications Acetaminophen (Acetaminophen 325 Mg Tab) 650 mg PO Q4H PRN PRN Reason: pain/fever Stop: 07/26/20 21:39 Al Hydrox/Mg Hydrox/Simethicone (Aluminum/Magnesium/Simeth (Maalox Max) 30 Ml Udc) 30 ml PO Q6H PRN PRN Reason: Dyspepsia Stop: 07/27/20 18:22 Dorzolamide/Timolol (Dorzolamide/Timolol 22.3/6.8mg/Ml 10 Ml Btl) 1 drops OPB BID [facility] Stop: 07/26/20 21:39 Last Admin: 07/01/20 20:09 Dose: 1 drops Documented by: Ceftriaxone Sodium 2,000 mg/ (Dextrose) 70 mls @ 100 mls/hr IV DAILY@2200 [facility]; Protocol Stop: 07/06/20 21:59 Last Infusion: 07/01/20 22:16 Dose: Infused Documented by: Latanoprost (Latanoprost 0.005% Op Soln 2.5 Ml Btl) 1 drops OPB HS [facility] Stop: 07/26/20 21:39 Last Admin: 07/01/20 20:09 Dose: 1 drops Documented by: Multivitamins (Multivitamin Tab) 1 tab PO QAM [facility] Stop: 07/27/20 08:59 Last Admin: 07/01/20 09:19 Dose: 1 tab Documented by: Vitamin D (Cholecalciferol 1,000 Units 25 Mcg Tab) 2,000 units PO QAM [facility] Stop: 07/27/20 08:59 Last Admin: 07/01/20 09:19 Dose: 2,000 units Documented by: PG Care Time/CCT Total # of Minutes Spent Total Time Spent: 45 Total Time Spent with Patient: Total time spent is greater than 50% in coordination of care (as documented) at patient's floor/unit and/or counseling patient: 25 minutes with patient and his advocate in the room 5 minutes on phone with pharmacy checking copay 15 minutes reviewing chart, generating plan Coding Level of Care Code 85498 Subseq Hosp Care Lvl 3 Diagnoses Atrial fibrillation, new onset I48.91 Lyme disease A69.20 Glaucoma H40.9 Glaucoma type: unspecified Laterality: bilateral Cough R05 DVT prophylaxis Z29.9 Hypotension I95.9 (1) Glaucoma Glaucoma type: unspecified Laterality: bilateral Qualified Code(s): H40.9 - Unspecified glaucoma
[2020-07-02] MEDS: MIDODRINE HCL 2.5 MG TAB PO SCH ×4 (08:55→16:40)
[2020-07-02] MEDS: DORZOLAMIDE/TIMOLOL 22.3/6.8MG/ML 10 ML BTL OPB SCH ×2 (08:56→20:51)
[2020-07-02] MEDS: CHOLECALCIFEROL 1,000 UNITS 25 MCG TAB PO SCH (08:56)
[2020-07-02] MEDS: MULTIVITAMIN TAB PO SCH (08:56)
--- NOTE | 2020-07-02 14:59 | Hospitalist Progress Note ---
Date of Service July 02, 2020 Assessment & Plan (1) Atrial fibrillation, new onset: likely due to acute Lyme disease causing Lyme carditis [id number]-[id number] score = 0. Low risk, 0.2% per year stroke risk. - Echo on 06/27 showed EF 50-55%. plan to treat Lyme disease with Rocephin 2gm IV daily x 30 days total will anticoagulate with Xarelto 20mg daily until he follows up with cardiology will follow up with Dr. Andrade in 3 weeks, if still in afib then plan for cardioversion rates in 60-80's today without rate control medications plan to d/c to home tomorrow (2) Lyme disease: IgG and IgM positive on screen - Awaiting results of Western blot - one band of IgM and several bands for IgG, suggests tertiary infection - Ceftriaxone 2gm IV daily plan for peripheral guided IV, 30 days total treatment - Check Anaplasmosis Ab but doubt infection, platelets and LFT normal anaplasmosis is NEGATIVE (3) Glaucoma: Chronic. - Continue dorzolamide-timolol, latanoprost - Discussed beta richa eye drop with cardiology - Thought to be non- contributory to HR and fatigue. (4) Cough: Patient endorses cough, shortness of breath, and dyspnea on exertion since 09 Jun 2020. He does not appear to be in failure on exam. CXR on admission was unremarkable. Covid-19 was negative. No evidence of infection. CT angiogram chest witout PE, no pneumonia - Ddx includes chronic hypotension, Lyme disease, or symptomatic afib. - Plans as above (5) DVT prophylaxis: SCDs - Low DVT risk per admission calculator (6) Hypotension: chronic issue but with BP in 70's systolic earlier in stay tried Midodrine 10mg TID but patient did not tolerate well tried Florinef but now he is c/o constellation of side effects, wants to stop checked labs, CBC, CMP, mag, phos all normal will hold Florinef, he wants to try Midodrine again today, 5mg TID tolerating better discussed that he needs to liberalize salt in diet, he admits that he avoids all salt discussed that he needs to drink more water, Milla says he does not drink well at all Admission and Anticipated Discharge Date Admission Date: June 26, 2020 Subjective patient feeling okay today he c/o some numbness in right hand and left fingers says he feels cold, has sweats he is ambulating independently around the halls discussed that his BP is better on the Midodrine he wanted to talk with me about his theory that he may have been experiencing angina the past few months explained the symptoms of angina discussed that he had a normal echo, no ischemic changes on EKG, two negative troponins, CT angio of the chest that was normal visited with patient twice first visit was this morning, lasted 15 minutes second visit was with patient and his medical advocate, Milla, in the afternoon which lasted 45 minutes discussed plan for discharge extensively long talk about taking Xarelto, explained that his risk of stroke is low however, if he wishes to be cardioverted in three weeks if still in afib, he needs to be fully anticoagulated otherwise, Dr. Andrade would need to perform DAPHNIE cardioversion, explained that this more invasive he wanted to try no Xarelto for three weeks, if still in afib then start Xarelto then follow up in another three weeks discussed that this would not be ideal, the longer he is in afib the less likely a cardioversion would work Milla agreed that he should be on Xarelto on discharge he agreed to start the Xarelto now in total I spend 80 minutes on this patient today Review of Systems Review of Systems: All systems reviewed & are unremarkable except as noted in Subjective Physical Exam Constitutional: WD/WN, vitals as above Eyes: PERRL, conjunctivae normal, anicteric sclerae ENMT: external ear and nose normal, oropharynx normal Neck: trachea midline, no thyromegaly Respiratory: normal respiratory effort, lungs clear to auscultation Cardiovascular: Rate/Rhythm: regular rate and + irregularly irregular Heart Sounds: normal S1 and normal S2; no murmur Vessels: no JVD Extremities: normal capillary refill; no edema Gastrointestinal (Abdomen): normal bowel sounds, soft, nontender, no hepatosplenomegaly Musculoskeletal: no cyanosis or clubbing, extremities motor strength 5/5 Skin: no rashes, warm and dry Neurologic: patellar DTR's 2+ bilat, sensation intact and PERRL, EOMI, accommodation nl, no face palsy, no dysarthria Psychiatric: Orientation: alert and oriented x 3 Affect: + anxious affect Mood: + anxious mood Lymphatic: no cervical or axillary lymphadenopathy Results & Data Results & Data ([facility]) Vital Signs (Past 12 Hours) Vital Signs Temp Pulse Pulse Resp BP Pulse Ox 07/02/20 14:56 36.7 C 57 L 18 105/67 96 07/02/20 12:07 36.5 C 72 18 98/66 L 96 07/02/20 07:20 36.7 C 56 L 18 85/51 L 95 07/02/20 07:13 53 L 07/02/20 04:00 36.4 C L 52 L 18 85/48 L 95 Medications Administered Current Inpatient Medications Acetaminophen (Acetaminophen 325 Mg Tab) 650 mg PO Q4H PRN PRN Reason: pain/fever Stop: 07/26/20 21:39 Al Hydrox/Mg Hydrox/Simethicone (Aluminum/Magnesium/Simeth (Maalox Max) 30 Ml Udc) 30 ml PO Q6H PRN PRN Reason: Dyspepsia Stop: 07/27/20 18:22 Dorzolamide/Timolol (Dorzolamide/Timolol 22.3/6.8mg/Ml 10 Ml Btl) 1 drops OPB BID [facility] Stop: 07/26/20 21:39 Last Admin: 07/02/20 08:56 Dose: 1 drops Documented by: Ceftriaxone Sodium 2,000 mg/ (Dextrose) 70 mls @ 100 mls/hr IV DAILY@2200 [facility]; Protocol Stop: 07/06/20 21:59 Last Infusion: 07/01/20 22:16 Dose: Infused Documented by: Latanoprost (Latanoprost 0.005% Op Soln 2.5 Ml Btl) 1 drops OPB HS [facility] Stop: 07/26/20 21:39 Last Admin: 07/01/20 20:09 Dose: 1 drops Documented by: Midodrine (Midodrine Hcl 2.5 Mg Tab) 5 mg PO TID@0800,1200,1700 [facility] Stop: 08/01/20 07:59 Last Admin: 07/02/20 12:23 Dose: 5 mg Documented by: Multivitamins (Multivitamin Tab) 1 tab PO QAM [facility] Stop: 07/27/20 08:59 Last Admin: 07/02/20 08:56 Dose: 1 tab Documented by: Rivaroxaban (Rivaroxaban 20 Mg Tab) 20 mg PO DAILY [facility] Stop: 08/01/20 11:59 Vitamin D (Cholecalciferol 1,000 Units 25 Mcg Tab) 2,000 units PO QAM [facility] Stop: 07/27/20 08:59 Last Admin: 07/02/20 08:56 Dose: 2,000 units Documented by: PG Care Time/CCT Total # of Minutes Spent Total Time Spent: 80 Total Time Spent with Patient: Total time spent is greater than 50% in coordination of care (as documented) at patient's floor/unit and/or counseling patient: 15 minutes on first visit to room 45 minutes on second visit to room with Milla and patient 20 minutes reviewing chart, preparing plan Prolonged Care Time Prolonged Care Time: Yes Total Prolonged Care Time: 45 Coding Level of Care Code 49447 Subseq Hosp Care Lvl 3 Diagnoses Atrial fibrillation, new onset I48.91 Lyme disease A69.20 Glaucoma H40.9 Glaucoma type: unspecified Laterality: bilateral Cough R05 DVT prophylaxis Z29.9 Hypotension I95.9 Additional Codes Prolonged Care Time - Prolonged Care Time: Yes ([id number]) (1) Glaucoma Glaucoma type: unspecified Laterality: bilateral Qualified Code(s): H40.9 - Unspecified glaucoma
[2020-07-02] MEDS: RIVAROXABAN 20 MG TAB PO SCH ×2 (15:42→16:40)
[2020-07-02] MEDS: LATANOPROST 0.005% OP SOLN 2.5 ML BTL OPB SCH (20:51)
[2020-07-02] MEDS: cefTRIAXone SODIUM 2,000 MG in DEXTROSE 5% 50 ML IV SCH (20:51)
[2020-07-03] MEDS: DORZOLAMIDE/TIMOLOL 22.3/6.8MG/ML 10 ML BTL OPB SCH ×2 (09:19→21:22)
[2020-07-03] MEDS: MULTIVITAMIN TAB PO SCH (09:58)
[2020-07-03] MEDS: MIDODRINE HCL 2.5 MG TAB PO SCH ×3 (09:58→17:01)
[2020-07-03] MEDS: RIVAROXABAN 20 MG TAB PO SCH (09:59)
[2020-07-03] MEDS: CHOLECALCIFEROL 1,000 UNITS 25 MCG TAB PO SCH (09:59)
--- NOTE | 2020-07-03 15:58 | Hospitalist Progress Note ---
Date of Service July 03, 2020 Assessment & Plan (1) Atrial fibrillation, new onset: likely due to acute Lyme disease causing Lyme carditis [id number] score = 0. Low risk, 0.2% per year stroke risk. - Echo on 06/27 showed EF 50-55%. plan to treat Lyme disease with Rocephin 2gm IV daily x 30 days total last day will be 07/28 will anticoagulate with Xarelto 20mg daily until he follows up with cardiology will follow up with Dr. Andrade in 3 weeks, if still in afib then plan for card ioversion rates in 60-80's daily without rate control medications plan to d/c to home on Wednesday 07/04 (2) Lyme disease: IgG and IgM positive on screen - Awaiting results of Western blot - one band of IgM and several bands for IgG, suggests tertiary infection - Ceftriaxone 2gm IV daily plan for peripheral guided IV, 30 days total treatment, last day 07/28 - Check Anaplasmosis Ab but doubt infection, platelets and LFT normal anaplasmosis is NEGATIVE (3) Glaucoma: Chronic. - Continue dorzolamide-timolol, latanoprost - Discussed beta richa eye drop with cardiology - Thought to be non- contributory to HR and fatigue. (4) Cough: Patient endorses cough, shortness of breath, and dyspnea on exertion since 09 Jun 2020. He does not appear to be in failure on exam. CXR on admission was unremarkable. Covid-19 was negative. No evidence of infection. CT angiogram chest witout PE, no pneumonia - Ddx includes chronic hypotension, Lyme disease, or symptomatic afib. - Plans as above (5) DVT prophylaxis: SCDs - Low DVT risk per admission calculator (6) Hypotension: chronic issue but with BP in 70's systolic earlier in stay tried Midodrine 10mg TID but patient did not tolerate well tried Florinef but now he is c/o constellation of side effects, wants to stop checked labs, CBC, CMP, mag, phos all normal will hold Florinef, he wants to try Midodrine again, will try lower dose at 5mg TID tolerating better discussed that he needs to liberalize salt in diet, he admits that he avoids all salt discussed that he needs to drink more water, Milla says he does not drink well at all Admission and Anticipated Discharge Date Admission Date: June 26, 2020 Subjective patient tolerating the midorine, says that he laid down in the afternoon and did not feel "weird" as he was worried about his blood pressure has been consistently > 90 systolic, sometimes reaching 100mmHg he is eating and drinking well we had a long talk about the importance of sodium intake and water intake he admits that he tries to avoid salt at home he also has a difficult time drinking enough water, he has to force himself still no US guided IV, plan to get it later today long discussion with patient and Milla, his advocate, about plans for discharge tomorrow they are in agreement spoke with CM, the Ceftriaxone will be delivered tomorrow in the afternoon prior to discharge Review of Systems Review of Systems: All systems reviewed & are unremarkable except as noted in Subjective Physical Exam Constitutional: WD/WN, vitals as above Eyes: PERRL, conjunctivae normal, anicteric sclerae ENMT: external ear and nose normal, oropharynx normal Neck: trachea midline, no thyromegaly Respiratory: normal respiratory effort, lungs clear to auscultation Cardiovascular: Rate/Rhythm: regular rate and + irregularly irregular Heart Sounds: normal S1 and normal S2; no murmur Vessels: no JVD Extremities: normal capillary refill; no edema Gastrointestinal (Abdomen): normal bowel sounds, soft, nontender, no hepatosplenomegaly Musculoskeletal: no cyanosis or clubbing, extremities motor strength 5/5 Skin: no rashes, warm and dry Neurologic: patellar DTR's 2+ bilat, sensation intact and PERRL, EOMI, accommodation nl, no face palsy, no dysarthria Psychiatric: Orientation: alert and oriented x 3 Affect: + anxious affect Mood: + anxious mood Lymphatic: no cervical or axillary lymphadenopathy Results & Data Results & Data ([facility]) Vital Signs (Past 12 Hours) Vital Signs Temp Pulse Pulse Resp BP Pulse Ox 07/03/20 15:47 36.5 C 62 17 99/62 L 95 07/03/20 11:51 36.4 C L 88 17 103/68 95 07/03/20 08:09 36.7 C 60 17 103/68 94 07/03/20 06:20 62 Medications Administered Current Inpatient Medications Acetaminophen (Acetaminophen 325 Mg Tab) 650 mg PO Q4H PRN PRN Reason: pain/fever Stop: 07/26/20 21:39 Al Hydrox/Mg Hydrox/Simethicone (Aluminum/Magnesium/Simeth (Maalox Max) 30 Ml Udc) 30 ml PO Q6H PRN PRN Reason: Dyspepsia Stop: 07/27/20 18:22 Dorzolamide/Timolol (Dorzolamide/Timolol 22.3/6.8mg/Ml 10 Ml Btl) 1 drops OPB BID [facility] Stop: 07/26/20 21:39 Last Admin: 07/03/20 09:19 Dose: 1 drops Documented by: Ceftriaxone Sodium 2,000 mg/ (Dextrose) 70 mls @ 100 mls/hr IV DAILY@2200 [facility]; Protocol Stop: 07/06/20 21:59 Last Infusion: 07/02/20 21:48 Dose: Infused Documented by: Latanoprost (Latanoprost 0.005% Op Soln 2.5 Ml Btl) 1 drops OPB HS [facility] Stop: 07/26/20 21:39 Last Admin: 07/02/20 20:51 Dose: 1 drops Documented by: Midodrine (Midodrine Hcl 2.5 Mg Tab) 5 mg PO TID@0800,1200,1700 [facility] Stop: 08/01/20 07:59 Last Admin: 07/03/20 13:49 Dose: 5 mg Documented by: Multivitamins (Multivitamin Tab) 1 tab PO QAM [facility] Stop: 07/27/20 08:59 Last Admin: 07/03/20 09:58 Dose: 1 tab Documented by: Rivaroxaban (Rivaroxaban 20 Mg Tab) 20 mg PO DAILY [facility] Stop: 08/01/20 11:59 Last Admin: 07/03/20 09:59 Dose: 20 mg Documented by: Vitamin D (Cholecalciferol 1,000 Units 25 Mcg Tab) 2,000 units PO QAM [facility] Stop: 07/27/20 08:59 Last Admin: 07/03/20 09:59 Dose: 2,000 units Documented by: PG Care Time/CCT Total # of Minutes Spent Total Time Spent with Patient: Total time spent is greater than 50% in coordination of care (as documented) at patient's floor/unit and/or counseling patient: Coding Level of Care Code 18681 Subseq Hosp Care Lvl 2 Diagnoses Atrial fibrillation, new onset I48.91 Lyme disease A69.20 Glaucoma H40.9 Glaucoma type: unspecified Laterality: bilateral Cough R05 DVT prophylaxis Z29.9 Hypotension I95.9 (1) Glaucoma Glaucoma type: unspecified Laterality: bilateral Qualified Code(s): H40.9 - Unspecified glaucoma
[2020-07-03] MEDS: LATANOPROST 0.005% OP SOLN 2.5 ML BTL OPB SCH (21:22)
[2020-07-03] MEDS: cefTRIAXone SODIUM 2,000 MG in DEXTROSE 5% 50 ML IV SCH (21:22)
--- NOTE | 2020-07-04 08:12 | Ultrasound Report ---
RIGHT UPPER EXTREMITY VENOUS DOPPLER HISTORY: Right arm pain. COMPARISON STUDY: None. FINDINGS: The right internal jugular vein is patent. There is normal flow within the right subclavian vein. There is normal flow and compressibility within the right axillary, basilic, brachial, radial, ulnar, and visualized cephalic veins. IMPRESSION: No DVT within the right upper extremity. ACT 112: Negative or not required by law. Electronically signed by: Kobi Brewster M.D. 07/04/2020 8:11 AM
[2020-07-04] MEDS: MIDODRINE HCL 2.5 MG TAB PO SCH ×2 (08:26→12:18)
[2020-07-04] MEDS: DORZOLAMIDE/TIMOLOL 22.3/6.8MG/ML 10 ML BTL OPB SCH (08:26)
[2020-07-04] MEDS: MULTIVITAMIN TAB PO SCH (08:27)
[2020-07-04] MEDS: CHOLECALCIFEROL 1,000 UNITS 25 MCG TAB PO SCH (08:27)
[2020-07-04] MEDS: RIVAROXABAN 20 MG TAB PO SCH (08:27)
--- NOTE | 2020-07-05 20:43 | Discharge Summary ---
Date of Service July 05, 2020 Admission HPI Per Admitting Provider Mr. Roland Cochran is a 59yo C male presenting with symptoms beginning on 09 Jun 2020. Patient describes constant cough productive for occasional clear mucus, SOB, ROGERS and extreme fatigue. He states he becomes tired with ambulating less than 20 feet in his home. He also describes "a bird in his chest", palpitations. He has occasional nausea, chest discomfort and cold sweats. He denies orthopnea, edema or weight gain. Patient also endorses years of body aches, joint pain and fatigue. [place] and has had multiple tick bites in the past. He has never tested positive for Lyme disease before. Patient with remote history of septic shock requiring prolonged hospitalization. Patient reports that he has had significant short term memory loss since then. No additional complaints at this time. Patient has a caregiver/advocate that assists him during medical care. She was not present during my encounter but will be coming to his room later this evening. ER Course: Heparin drip, NSS x 2L Principal Diagnosis Lyme carditis causing atrial fibrillation Discharge Exam Constitutional WD/WN, vitals as above Eyes PERRL, conjunctivae normal, anicteric sclerae ENMT external ear and nose normal, oropharynx normal Neck trachea midline, no thyromegaly Respiratory normal respiratory effort, lungs clear to auscultation Cardiovascular Rate/Rhythm: regular rate and + irregularly irregular Heart Sounds: normal S1 and normal S2; no murmur Vessels: no JVD Extremities: normal capillary refill; no edema Gastrointestinal (Abdomen) normal bowel sounds, soft, nontender, no hepatosplenomegaly Musculoskeletal no cyanosis or clubbing, extremities motor strength 5/5 Skin no rashes, warm and dry Neurologic patellar DTR's 2+ bilat, sensation intact and PERRL, EOMI, accommodation nl, no face palsy, no dysarthria Psychiatric Orientation: alert and oriented x 3 Affect: + anxious affect Mood: + anxious mood Lymphatic no cervical or axillary lymphadenopathy Discharge Data Allergies Allergy/AdvReac Type Severity Reaction Status Date / Time walnut Allergy Severe THROAT Verified 06/26/20 17:13 SWELLS ciprofloxacin Allergy Mild RASH Verified 06/26/20 17:13 Cipro Allergy Unknown RASH Verified 03/23/18 16:18 Penicillins Allergy Unknown UNKNOWN Verified 06/26/20 17:13 hydrocodone AdvReac Intermediate DIZZY Verified 06/26/20 17:14 oxycodone AdvReac Intermediate dizzy Verified 06/26/20 17:14 spells sulfamethoxazole AdvReac Intermediate DIZZY Verified 06/26/20 17:14 terazosin AdvReac Intermediate wicked Verified 06/26/20 17:15 dizzy tramadol AdvReac Intermediate "WAY OUT Verified 06/26/20 17:15 IN OUTER SPACE" trimethoprim AdvReac Intermediate DIZZY Verified 06/26/20 17:15 Bactrim AdvReac Unknown DIZZY Verified 03/23/18 16:18 Consultations 06/26/20 19:42 ED Decision to Admit Stat 06/26/20 21:40 Consult Cardiology Routine Ordered Studies 06/26/20 17:29 US venous duplex leg [US venous doppler LE BI] Stat 06/26/20 18:55 CT angio chest PE protocol Stat 07/04/20 02:49 US venous doppler UE RT Urgent Hospital Course (1) Atrial fibrillation, new onset: 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 Low risk, 0.2% per year stroke risk. - Echo on 06/27 showed EF 50-55%. plan to treat Lyme disease with Rocephin 2gm IV daily x 30 days total last day will be 07/28 will anticoagulate with Xarelto 20mg daily until he follows up with cardiology reason for anticoagulation even though he is low risk is that if he is still in afib in three weeks, Dr. Andrade can perform cardioversion want to avoid needing DAPHNIE cardioversion will follow up with Dr. Andrade in 3 weeks, if still in afib then plan for cardioversion rates in 60-80's daily without rate control medications (2) Lyme disease: IgG and IgM positive on screen, per patient he has never tested positive prior to this - Awaiting results of Western blot - one band of IgM and several bands for IgG, suggests possible tertiary infection - Ceftriaxone 2gm IV daily placed peripheral guided IV on 07/03, 30 days total treatment, last day 07/28 arranged for home health visits, Milla, his advocate will administer Ceftriaxone in the evening follow up with PCP next week - Check Anaplasmosis Ab but doubt infection, platelets and LFT normal anaplasmosis is NEGATIVE (3) Glaucoma: Chronic. - Continue dorzolamide-timolol, latanoprost - Discussed beta richa eye drop with cardiology - Thought to be non- contributory to HR and fatigue. (4) Cough: Patient endorses cough, shortness of breath, and dyspnea on exertion since 09 Jun 2020. He does not appear to be in failure on exam. CXR on admission was unremarkable. Covid-19 was negative. No evidence of infection. CT angiogram chest witout PE, no pneumonia - Ddx includes chronic hypotension, Lyme disease, or symptomatic afib. - Plans as above (5) DVT prophylaxis: SCDs - Low DVT risk per admission calculator (6) Hypotension: chronic issue but with BP in 70's systolic earlier in stay tried Midodrine 10mg TID but patient did not tolerate well tried Florinef but now he is c/o constellation of side effects, wants to stop checked labs, CBC, CMP, mag, phos all normal will hold Florinef, he wants to try Midodrine again, will try lower dose at 5mg TID tolerating well, SBP in the 90-100 range discussed that he needs to liberalize salt in diet, he admits that he avoids all salt discussed that he needs to drink more water, Milla says he does not drink well at all received phone call from patient the day after discharge, the Midodrine required prior authorization completed authorization form and case management faxed to insurance on 07/05 called Milla to let her know it was faxed and to follow up with insurance Total Time Total Time Spent Total Time Spent (In Minutes): 36 minutes Total Time Includes: Examination of the Patient, Discharge Planning, Medication Reconciliation and Other (discussion with Milla, his medical advocate) Discharge Plan Discharge Items Patient Disposition: Home - Self-Care Reason For Visit: NEW ONSET AF Discharge Diagnosis: Atrial fibrillation Lyme carditis Hypotension Condition on Discharge: Good Goals: follow up with Dr. Andrade in 3 weeks to discuss management of atrial fibrillation treat Lyme disease completely with 30 days total of Ceftriaxone IV Activity: Resume your previous activity Lifting: None Bathing: No limitations Exercise/Sports: Gradually increase as tolerated Weightbearing: Full weightbearing Non-emergency contact: Primary Care Provider Call non-emergency contact if: you have any medication questions and your symptoms worsen Follow-up/Referrals: Raza Andrade MD [Physician] - 07/24/20 1:00 pm (Please call [phone] if you need to reschedule this appointment.) Brooks Najera [Primary Care Provider] - 07/08/20 2:50 pm (Please call [phone] if you need to reschedule this appointment.) Diet: Regular Addtl Attending Provider Instructions: Medications: - CEFTRIAXONE: 2gm IV daily until 07/26/20 to complete 30 days - MIDODRINE: 5mg two to three times a day to treat hypotension - XARELTO: 20mg daily for anticoagulation Atrial fibrillation (new onset), 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 Andrade on 07/24 to see if you are in atrial fibrillation, discuss possible cardioversion Dr. Andrade and I recommend taking Xarelto 20mg daily as full anticoagulation as we discussed, the benefit of this is that you can get cardioversion without need for transesophageal echocardiogram Xarelto can cause easier bruising/bleeding so don't be alarmed if you see some bruising Hypotension: ongoing issue as you have discussed ever since your episode of sepsis Nilson worked reasonably well but you were experiencing some side effects Midodrine 5mg two to three times a day has been keeping your blood pressure 90-100 systolic I would recommend taking this at 8am and then noon or 1pm, not always necessary to take in evening make sure you are getting enough salt in your diet as salt helps the kidneys hold onto water make sure you are drinking enough water, drink at least 1.5 liters a day, 2 liters would be better consider water like a medication, something you need to do every day to keep blood pressure normal Pending Studies at Discharge: No Stand-Alone Forms: My [facility] [employer] Game, Smoking Cessation Medications and DC Order Prescriptions: New Xarelto 20 mg tablet 20 mg PO DAILY Qty: 30 RF: 0 midodrine 2.5 mg Tablet 5 mg PO TID@0800,1200,1700 30 Days Qty: 90 RF: 1 Continued latanoprost 0.005 % drops 1 drp OPB HS RF: 0 dorzolamide-timolol 22.3-6.8 mg/mL drops 1 drp OPB BID RF: 0 multivitamin Tablet 1 tab PO DAILY RF: 0 cholecalciferol (vitamin D3) [Vitamin D3] 2,000 unit Capsule 2,000 unit PO DAILY RF: 0 Discharge Orders: Discharge Order (Routine); Ordered 07/04/20 Ordered By: Shabbir Rice Admission Data Admit Date/Time: 06/26/20 20:32 Attending Provider: Shabbir Rice Admit Provider: Lilli Oliver Primary Care Provider: Brooks Najera Other Providers: Bhavesh Staton ; Kingston Aguayo Other Interventions: Discharge Summary Assessment (RN) Last Done: 07/04/20 12:37 Coding Level of Care Code D/C Day Management >30 mins Diagnoses Atrial fibrillation, new onset I48.91 Lyme disease A69.20 Glaucoma H40.9 Glaucoma type: unspecified Laterality: bilateral Cough R05 DVT prophylaxis Z29.9 Hypotension I95.9
== END 2020-07-04 13:50 | disposition home or self-care (01) | DRG 869 ==
LOC: ED 13:25 → SUATTDRO 20:32 → 2W 20:32